=== PATIENT | male | born 1960 | race Caucasian/White ===

== ENCOUNTER 2024-07-12 07:56 | Outpatient (CLI) | payer MEDICARE, SELFPAY ==
--- NOTE | ~2024-07-12 | MR_ITS ---
EXAMINATION: MR cervical spine wo con DATE: 07/12/2024 08:55 INDICATION: Radiculopathy, cervical region. TECHNIQUE: Magnetic resonance imaging (MRI) of the cervical spine was performed without intravenous c ontrast. COMPARISON: None FINDINGS: There is 12 degrees levoscoliosis of cervicothoracic spine. Vertebral body heights are norm al. There is moderately decreased disc height at C3-C4 and severely decreased disc height from C4-C5 through C6-C7. The spinal cord signal intensity is normal. The following disc levels are specifically discussed: C2-C3: There is a central protrusion. There is mild right uncovertebral joint osteoarthritis. There i s severe right and mild left facet joint osteoarthritis. There is mild right neural foraminal stenosi s. There is no central canal stenosis. C3-C4: The disc is bulging. There is severe bilateral uncovertebral joint osteoarthritis. There is mi ld right and severe left facet joint osteoarthritis. There is moderate bilateral neural foraminal derek nosis. There is mild central canal stenosis. C4-C5: The disc is bulging. There is severe bilateral uncovertebral joint osteoarthritis. There is mi ld right and moderate left facet joint osteoarthritis. There is moderate bilateral neural foraminal s tenosis. There is mild central canal stenosis. C5-C6: The disc is bulging. There is severe bilateral uncovertebral joint osteoarthritis. There is mi ld bilateral facet joint osteoarthritis. There is moderate bilateral neural foraminal stenosis. There is mild central canal stenosis. C6-C7: The disc is bulging. There is severe bilateral uncovertebral joint osteoarthritis. There is mo derate bilateral facet joint osteoarthritis. There is severe bilateral neural foraminal stenosis. The re is mild central canal stenosis. C7-T1: The disc does not extend beyond the endplate margin. There is no uncovertebral joint osteoarth ritis. There is severe bilateral facet joint osteoarthritis. There is mild bilateral neural foraminal stenosis. There is no central canal stenosis. IMPRESSION: 1. Severe cervical spondylosis. Reviewed, dictated and finalized at location A.
--- NOTE | ~2024-07-12 | MR_ITS ---
EXAMINATION: MR shoulder LT wo con DATE: 07/12/2024 08:38 INDICATION: Primary osteoarthritis, left shoulder. TECHNIQUE: Magnetic resonance imaging (MRI) of the left shoulder was performed without intravenous co ntrast. Sequences included axial PD-weighted FS FSE, coronal oblique PD-weighted FS FSE and T2-weight ed FS FSE, and sagittal oblique T2-weighted FS FSE and T1-weighted FSE. COMPARISON: None. FINDINGS: Coracoacromial arch: The acromion undersurface is flat in morphology (type I). There is severe acromioclavicular joint ost eoarthritis including inferiorly directed osteophytes. There is mild subacromial/subdeltoid bursitis. Rotator cuff: There is mild supraspinatus and infraspinatus tendinopathy. Teres minor tendon is normal. There is mi ld subscapularis tendinopathy. No tear. There is no asymmetric fatty atrophy of the rotator cuff musc le bellies. Biceps tendon and glenoid labrum: Biceps tendon is in bicipital groove. There is mild biceps tendinopathy. There is degeneration of the glenoid labrum without well-defined tear. Fluid: There is a small glenohumeral joint effusion. Bones/cartilage: There is shallow partial-thickness cartilage loss of glenoid and humeral head. IMPRESSION: 1. Mild rotator cuff tendinopathy. No tear. 2. Mild glenohumeral joint chondrosis. 3. Mild intra-articular biceps tendinopathy. 4. Severe acromioclavicular joint osteoarthritis. 5. Small glenohumeral joint effusion. 6. Mild subacromial/subdeltoid bursitis. Reviewed, dictated and finalized at location A.
== END 2024-07-12 07:57 | disposition home or self-care (01) ==
PROVIDERS: PCP Internal Medicine; Visit Provider Physician Assistant Surgical
DX: M19.012 Primary osteoarthritis, left shoulder (principal); M54.12 Radiculopathy, cervical region; M43.02 Spondylolysis, cervical region; M67.814 Other specified disorders of tendon, left shoulder; M94.212 Chondromalacia, left shoulder; M75.22 Bicipital tendinitis, left shoulder; M25.412 Effusion, left shoulder; M75.52 Bursitis of left shoulder
CPT/HCPCS: 72141; 73221

== ENCOUNTER 2025-02-03 10:06 | Outpatient (CLI) | payer MEDICARE, SELFPAY ==
--- NOTE | 2025-02-03 10:22 | ECG_ITS ---
Test Date: 2025-02-03 10:42:43 Measurements Intervals [place] Rate: 57 P: 69 MO: 213 QRS: -61 QRSD: 154 T: 15 QT: 455 QTc: 444 Interpretive Statements SINUS BRADYCARDIA WITH FIRST DEGREE AV BLOCK INTRAVENTRICULAR CONDUCTION DELAY [130+ ms QRS DURATION] LEFT VENTRICULAR HYPERTROPHY AND ST-T CHANGE [VOLTAGE CRITERIA PLUS ST/T ABNORMALITY] No previous ECG available for comparison Electronically Signed On 02-03-2025 10:55:53 CDT by Richard Frye M.D.
--- OUTSIDE RECORDS SUMMARY | 2025-02-03 10:44 | XMS_ITS | Referral Summary ---
Author Organization [facility] Address [address] [place] [address] Care Team Providers Care Department Clinician Name Role Phone Maxx Clark MD Primary Care Provider + Hernandez Oro MD Unavailable Encounters Date Type Department Care Team Description 01/28/2025 9:20 AM CDT Office Visit [facility]) - [facility] [id number] [facility] Medical Office Building [address] [place] [address] Suki Yu NP Mass of jaw (Primary Dx); Former smoker 01/23/2025 Telephone [facility] Otolaryngology [address] [place] [id number] Susy Wilkinson MS 11/25/2024 10:00 AM CDT Office Visit [facility] Pulmonary at [address] [place] [address] Hernandez Oro MD Chronic obstructive pulmonary disease, unspecified COPD type (HCC) (Primary Dx); Pulmonary nodules; Bronchiectasis without acute exacerbation (HCC); Cigarette nicotine dependence in remission; Nocturnal hypoxemia 11/08/2024 Telephone [facility] Pulmonary at [address] [place] [id number] Portillo Scarlet, DANNY dupixent (Needs top call optum ) from Last 3 Months Allergies Active Allergy Reactions Criticality Noted Date Comments Ceftriaxone Other (See comments) 01/28/2025 tremors Ciprofloxacin Anaphylaxis High 06/05/2018 Medications albuterol HFA (PROVENTIL HFA,VENTOLIN HFA,PROAIR HFA) 90 mcg/actuation inhaler Inhale 2 puffs every 6 (six) hours as needed for wheezing 1 each 11 3 Active sodium chloride 3.5 % solution for nebulization Inhale 1 vial 2 (two) times a day 240 mL 11 4 Active predniSONE (DELTASONE) 10 mg tablet Take 1 tablet (10 mg) by mouth daily Active multivitamin with minerals tablet Take 1 tablet by mouth daily Active ascorbic acid (vitamin C) 1,000 mg tablet Take 1 tablet (1,000 mg total) by mouth daily Active acetylcysteine (NAC) 600 mg capsule Take 1 capsule by mouth daily Active buPROPion SR (ZYBAN) 150 mg 12 hr tablet Take 1 tablet (150 mg total) by mouth 2 (two) times a day Start after 150mg po daily x3 days 60 tablet 11 4 03/07/20 25 Active Additional Information Patient not taking.Reported on 11/25/2024 guaiFENesin ER (MUCINEX) 600 mg 12 hr tablet Take 1 tablet (600 mg total) by mouth 2 (two) times a day 60 tablet 4 Active Additional Information Patient not taking.Reported on 11/25/2024 predniSONE (DELTASONE) 10 mg tabletIndication s:Centrilobular emphysema (HCC) Take 1 tablet (10 mg) by mouth daily 30 tablet 2 4 Active dupilumab (Dupixent Pen) pen injectorIndicati ons:Centrilobula r emphysema (HCC) Inject 2 mL (300 mg total) under the skin every 14 (fourteen) days 4 mL 11 4 Active Additional Information Patient not taking.Reported on 11/25/2024 albuterol 2.5 mg /3 mL (0.083 %) nebulizer solutionIndicati ons:Centrilobula r emphysema (HCC) USE 1 VIAL IN NEBULIZER EVERY 4 HOURS NEEDED FOR WHEEZING 180 mL 11 5 Active budesonide-glyco pyr-formoterol (Breztri Aerosphere) 160-9-4.8 mcg/actuation inhaler Inhale 2 puffs 2 (two) times a day Active penicillin v potassium (VEETID) 500 mg tablet TAKE 1 TABLET BY MOUTH THREE TIMES DAILY FOR 10 DAYS 5 Active Active Problems Problem Noted Date Diagnosed Date Pneumonia of both lungs due to infectious organism, unspecified part of lung 03/12/2024 Long-term use of high-risk medication 03/07/2024 Assessment & Plan (08/27/2024 12:46 PM SURVEY DATA TECHNICIAN): He has been on Prednisone for many years. We have had an extensive discussion about usp steroid use and I have cautioned him on the risks. I would ideally like to wean him to off after starting him on Dupixent For now continue prednisone 10 mg daily Assessment & Plan (03/07/2024 3:41 PM CDT): He has been on Prednisone for many years. We have had an extensive discussion about usp steroid use and I have cautioned him on the risks. I would ideally like to wean him to off. Check vitamin D levels in the interval Current chronic use of systemic steroids 024 Cigarette nicotine dependence without complicati on 01/12/2024 Assessment & Plan (08/27/2024 12:38 PM SURVEY DATA TECHNICIAN): - Smoking cessation counseling and techniques reviewed at length - Avoid triggers and use distraction techniques - He is aware of the [place] Tobacco Quit line: 9-788-LOLJ-YES for free services - 5 minutes spent discussing cessation A previously sent an order for Wellbutrin however he never received this from the pharmacy. He will recheck at the pharmacy and continue to trying to cut down on his own Assessment & Plan (03/07/2024 3:42 PM CDT): - Smoking cessation counseling and techniques reviewed at length - Avoid triggers and use distraction techniques - Information given regarding [place] Tobacco Quit line: 2-905-GJAX-YES for free services - 4 minutes spent discussing cessation He is in agreement to start wellbutrin Assessment & Plan (02/05/2024 6:26 PM CDT): - Smoking cessation counseling and techniques reviewed at length - Avoid triggers and use distraction techniques - Information given regarding [place] Tobacco Quit line: 2-078-OJBU-YES for free services Poor tolerance to varenicline in the past 3 minutes spent discussing cessation Assessment & Plan (01/12/2024 12:54 PM CDT): - Smoking cessation counseling and techniques reviewed at length - Avoid triggers and use distraction techniques - Participate in support groups - Information given regarding [place] Tobacco Quit line: 8-619-WMGV-YES for free services 4 minutes spent discussing cessation Bronchiectasis without acute exacerbation 2023 Assessment & Plan (08/27/2024 12:40 PM SURVEY DATA TECHNICIAN): I have encouraged him to restart vest therapy BID and continue NAC Start doxycycline today Assessment & Plan (03/07/2024 3:40 PM CDT): Continue vest therapy BID, he has good use and benefit NAC Assessment & Plan (02/05/2024 6:20 PM CDT): Continue vest therapy and flutter valve Start NAC PO twice daily to assist with mucous clearance Assessment & Plan (01/12/2024 12:51 PM CDT): Continue vest therapy twice daily Flutter valve use consistently as well We have discussed the pathophysiology of bronchiectasis Continue NAC Chronic respiratory failure with hypoxia, on home O2 therapy 01/12/2024 Assessment & Plan (08/27/2024 12:48 PM SURVEY DATA TECHNICIAN): Continue supplemental oxygen with all sleep We have discussed the risks of hypoxia He declines NIV I previously placed an order for walk testing Assessment & Plan (02/05/2024 6:25 PM CDT): Continue supplemental oxygen with all sleep We have discussed the risks of hypoxia Consider NIV Assessment & Plan (01/12/2024 12:57 PM CDT): Continue supplemental oxygen with all sleep He did not require supplemental oxygen at discharge They will monitor his saturations with activity at home, may require re- evaluation for exertional hypoxia in the future Sepsis with acute hypoxic re spiratory failure without septic shock 12/26/2023 Hospital-acquired bacterial pneumonia 12/23/2023 Asymptomatic microscopic hematuria 12/23/2023 Calcium oxalate crystals in urine 12/23/2023 Pneumonia of right lower lobe due to infectious organism 12/12/2023 COPD exacerbation 08/11/2023 Anaphylaxis 06/06/2018 Assessment & Plan (06/06/2018 6:09 AM CDT): To ciprofloxacin. Status post Solu-Medrol and IM epinephrine. Patient is feeling much better at this time. Symptoms have mostly resolved. Still has some expiratory wheezing on the right. Will continue with breathing treatments. Lactic acidosis 06/06/2018 Assessment & Plan (06/06/2018 6:08 AM CDT): Likely secondary to acute on chronic hypoxic respiratory failure and pneumonia. Level still slightly elevated. Will give patient 1 L bolus and continue with IV fluids. Will continue to monitor. Acute respiratory failure with hypoxia 8 Assessment & Plan (06/06/2018 6:09 AM CDT): Patient normally wears 3 L q.h.s. however has needed oxygen around the clock. Will continue with supplemental oxygen and wean as tolerated. Lipid screening 05/31/2018 Assessment & Plan (11/29/2018 8:50 AM CDT): Due for lab work - orders given as previously ordered Chronic chest wall pain 05/31/2018 Assessment & Plan (11/29/2018 8:52 AM CDT): Discussed option of starting gabapentin. Discussed medication, treatment. He may call or return if he decides to start medication Assessment & Plan (05/31/2018 8:40 AM CDT): Intermittent nerve pain, post biopsy - tender With exam. He is not having daily pain. Reassurance given Muscle spasm 05/31/2018 Assessment & Plan (05/31/2018 8:41 AM CDT): Muscle spasm of lower abd- occurs infrequently. S/s not consistent with abdominal pain, acute abdomen. Reassurance given. Gastroesophageal reflux disease without esophagi tis 05/31/2018 Assessment & Plan (11/29/2018 8:52 AM CDT): Improved with ranitidine. Continue current medication. Assessment & Plan (05/31/2018 8:42 AM CDT): Intermittent, but he is on chronic daily prednisone. Will start zantac 150mg nightly. LAFB (left anterior fascicular block) 12/04/2017 Assessment & Plan (12/04/2017 3:45 PM CDT): Seen on EKG done before pulmonary rehab by centrifugal screen tender. 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 He will continue the prednisone taper back down to 10mg daily. Encouraged him to call pulmonology as instructed by their office if cough continues.He is using his albuterol nebulizer and inhalers as prescribed. Order for cbc Assessment & Plan (06/06/2018 6:08 AM CDT): Patient's centrifugal screen tender is Dr. Borrero. Will continue with prednisone 40 daily. Pulmonary nodules 08/22/2017 Overview (08/24/2017): Added automatically from request for surgery [id number] Assessment & Plan (08/27/2024 12:39 PM SURVEY DATA TECHNICIAN): Hospitalization for pneumonia in February of 2024 with a new ground-glass nodule and consolidations We will get a CT chest this month for follow-up Assessment & Plan (02/05/2024 6:27 PM CDT): Nodule to RUL resolved on imaging 12/[address] due in March 2024, ordered today Assessment & Plan (01/12/2024 12:55 PM CDT): Difficult to assess lower lobes related to mucus plugging and acute infection Repeat CT in 3 months, due 03/2024 Scleratitis 07/10/2017 Migraine without aura and responsive to treatmen t 01/25/2017 Overview (02/10/2017): Migraine without aura, not refractory Pneumonia 12/06/2016 Assessment & Plan (06/06/2018 6:07 AM CDT): Patient had an anaphylactic reaction to Cipro. Patient is currently on Rocephin and azithromycin. Will continue to monitor. Tobacco abuse 12/03/2015 Overview (12/23/2016): Smoker Assessment & Plan (03/01/2017 8:42 AM CDT): He has quit smoking. Chronic obstructive pulmonary disease 12/03/2015 Overview (12/23/2016): Chronic obstructive lung disease Assessment & Plan (08/27/2024 12:38 PM SURVEY DATA TECHNICIAN): Continue Breztri twice daily Albuterol as needed, he is aware of indications for use No clinical benefit from Azithromycin 500mg three times per week. He is intolerant to roflumilast We have discussed pulmonary rehab, I continue to believe this would be beneficial for him. We have also discussed NIV and he declines at this time. He has been steroid dependent for greater than 5 years Eosinophil count up to 600 over the past year We have discussed initiating Dupixent. He and his agree. I have signed the order for this today. Assessment & Plan (03/07/2024 3:39 PM CDT): Continue Breztri twice daily Albuterol as needed, discussed indications for use Continue Azithromycin 500mg three times per week. He is intolerant to roflumilast We have discussed pulmonary rehab, he will consider after the first of the year here at [facility]. We have also discussed NIV and he declines at this time. Re-check six minute walk testing to assess for exertional hypoxia. Assessment & Plan (02/05/2024 6:24 PM CDT): Likely overlap with good bronchodilator response on PFT Continue Breztri twice per day. Albuterol as needed only, discussed indications for use Start roflumilast and azithromycin three times weekly. I have instructed him to start azithromycin first and maintain this for 2 weeks before adding roflumilast Monitor for weight loss and additional SE Last LFT was normal. He has had peripheral eosinophilia even while on chronic prednisone, I would have a low threshold to initiate biologic therapy if he does not have good clinical benefit from additional therapies Assessment & Plan (01/12/2024 12:56 PM CDT): Continue Breztri 2 puffs twice per day Continue albuterol as needed, discussed indications for use He has been hospitalized 3 times in the past 6 months, secondary to bacterial and viral pneumonia Emphysema and COPD are complicated by bronchiectasis and tracheomalacia Consider azithromycin 3 times weekly, he has had difficulty maintaining his weight Daliresp is not an ideal option Order for nebulizer today to be used as needed, he would likely have greater benefit from nebulized medications and may need hypertonic saline in the future Assessment & Plan (08/31/2017 11:51 AM SURVEY DATA TECHNICIAN): Lung sounds are clear today. He is to continue the cipro until finished. Recheck CBC today to monitor white count. F/u with pulmonary as scheduled. He received flu vaccine at hospital discharge. I told him that he should Very careful this winter with influenza and other respiratory illnesses going around. Recommended staying out of public areas as much as possible, good hand washing and wearing a mask when going out. Assessment & Plan (03/01/2017 8:46 AM CDT): COPD is improving with lifestyle modifications and treatment. Following with pulmonology. Allergic reaction Solitary pulmonary nodule Resolved Problems Problem Noted Date Diagnosed Date Resolved Date Healthcare maintenance 12/03/201508/31 Overview (12/23/2016): Screening Assessment & Plan (03/01/2017 8:43 AM CDT): Order for lipid panel given. It was normal in 11/2015. F/u 6 months and as needed. Chronic bronchitis 12/03/2015 7 Overview (12/23/2016): Chronic bronchitis, unspecified chronic bronchitis type Immunizations Immunization Administration Dates Next Due Influenza, Quadrivalent, Kia l Culture-based MDCK, Antibiotic Free, Intramuscular 10/16/2018 Influenza, Quadrivalent, Split, Intramuscular Influenza, Quadrivalent, Spl it, Preservative Free, Intramuscular 08/26/2017 Social History Tobacco Use Types Packs/Day Years Used Date Smoking Tobacco: Former Cigarettes 0.5 51.4 S tarted: 1974 Passive Smoke Exposure: Past Smokeless Tobacco: Never Tobacco Cessation:Counseling Given: Not Answered Comments:Smoking History Packs/day: 1/4 Pack/day Alcohol Use Standard Drinks/Week Comments No 0 (1 standard drink = 0.6 oz pur e alcohol) [facility] [employer] Answer Date Recorded In the past 12 months has [employer] electric, gas, oil, or water [employer] threatened to shut off services in your home? No 03/13/2024 Social Connection and Isolat ion Panel [NHANES] Answer Date Recorded In a typical week, how many times do you talk on the phone with family, friends, or neighbors? More than three times a week 03/13/2024 How often do you get togethe r with friends or relatives? More than three times a week 03/13/2024 How often do you attend chur ch or orthodox services? Never 03/13/2024 Do you belong to any clubs o r organizations such as alevism groups, unions, fraternal or athletic groups, or school groups? No 03/13/2024 How often do you attend meet ings of the clubs or organizations you belong to? Never 03/13/2024 Are you , , di vorced, , never , or living with a partner? 03/13/2024 AUDIT-C Answer Date Recorded Q1: How often do you have a drink containing alc ohol? Never 08/27/2024 Average Number of Drinks Not on file 024 Frequency of Binge Drinking Not on file 08/18 Overall Financial Resource Strain (CARDIA) Answe r Date Recorded How hard is it for you to pa y for the very basics like food, housing, medical care, and heating? Not hard at all 03/13/2024 PHQ-2 Answer Date Recorded PHQ-2 Total Score 0 01/19/2024 Hunger Vital Sign Answer Date Recorded Within the past 12 months, y ou worried that your food would run out before you got the money to buy more. Never true 03/13/20 24 Within the past 12 months, t he food you bought just didn't last and you didn't have money to get more. Never true 03/13/2024 PRAPARE - Transportation Answer Date Re corded In the past 12 months, has l ack of transportation kept you from medical appointments or from getting medications? No 02/17 In the past 12 months, has l ack of transportation kept you from meetings, work, or from getting things needed for daily living? No 03/13/2024 Housing Stability Vital Sign Answer Eugenio e Recorded In the last 12 months, was t here a time when you were not able to pay the mortgage or rent on time? No 01/22/2024 In the last 12 months, how many places have you lived? 1 01/22/2024 In the last 12 months, was t here a time when you did not have a steady place to sleep or slept in a alf (including now)? No 01/22/2024 PHQ-9 Answer Date Recorded PHQ-9 Total Score 0 01/19/2024 Housing Stability Vital Sign Answer Eugenio e Recorded In the last 12 months, was t here a time when you were not able to pay the mortgage or rent on time? No 03/13/2024 In the past 12 months, how m any times have you moved where you were living? 0 03/13/2024 At any time in the past 12 m [place], were you homeless or living in a alf (including now)? No 03/13/2024 Personal Safety Answer Date Recorded Have you ever been in or are you currently in a harmful physical or emotional relationship or is someone making you feel afraid or unsafe? Denies 03/12/2024 Education Answer Date Recorded What is the highest level of school you have completed or the highest degree you have received? High school graduate 12/13/2023 Sex and Gender Information Value Date Recorded Sex Assigned at Not on file Legal Sex Male 1:15 AM SURVEY DATA TECHNICIAN Gender Identity Not on file Sexual Orientation Not on file Last Filed Vital Signs Vital Sign Reading Time Taken Comments Blood Pressure 108/66 11/25/2024 10:03 AM CDT Pulse 63 11/25/2024 10:03 AM CDT Temperature 36.7 C (98 F) 11/25/2024 10:03 AM CDT Respiratory Rate 16 11/25/2024 10:03 AM CDT Oxygen Saturation 97% 11/25/2024 10:03 AM CDT Inhaled Oxygen Concentration - - Weight 76.4 kg (168 lb 6.4 oz) 01/28/2025 9:32 A M CDT Height 177.8 cm (5' 10 ) 01/28/2025 9:32 AM CDT Body Mass Index 24.16 01/28/2025 9:32 AM CDT Plan of Treatment Not on file Procedures Procedure Name Priority Date/Time Associated Diagnosis Comments CTA CHEST ABDOMEN PELVIS ED 09/27/2019 5:52 AM SURVEY DATA TECHNICIAN HEPATITIS C ANTIBODY Routine Gen Lab 07/10/2017 6:03 PM CDT HM COLONOSCOPY Routine 12/21/2015 from Last 3 Months or Most Recently Relevant to Health Maintenance Results * CTA Chest Abdomen Pelvis (09/27/2019 5:52 AM SURVEY DATA TECHNICIAN) Anatomical Region Laterality Modality Body N/A Computed Tomogra phy 09/27/2019 5:25 AM SURVEY DATA TECHNICIAN Narrative 09/27/2019 6:22 AM SURVEY DATA TECHNICIAN PROCEDURE INFORMATION: Exam: CT Angiography Chest Without And With Contrast Exam date and time: 09/27/2019 5:25 AM Age: 58 years old Clinical indication: Right-sided chest pain; TECHNIQUE: Imaging protocol: Computed tomographic angiography of the chest without and with intravenous contrast. 3D rendering: MIP and/or 3D reconstructed images were created by the technologist. Contrast material: OPTI 350; Contrast volume: 115 ml; Contrast route: LEFT ARM; COMPARISON: CT CHEST WO CONTRAST 01/15/2019 7:35 AM FINDINGS: Pulmonary arteries: No pulmonary emboli. Aorta: 4.0 cm ascending thoracic aortic aneurysm. Lungs: Centrilobular emphysema with eary bullous changes. Scattered bronchiectasis. Linear fibrosis vs atelectasis lingula and right middle lobe. Pleural space: No pneumothorax. No pleural effusion. Heart: No cardiomegaly. No pericardial effusion. Lymph nodes: Unremarkable. No enlarged lymph nodes. Bones/joints: Chronic degenerative spinal changes without acute fracture or dislocation. Soft tissues: Unremarkable. IMPRESSION: 4 cm ascending thoracic aortic aneurysm. No dissection. No pulmonary emboli. Emphysema. PROCEDURE INFORMATION: Exam: CT Angiography Abdomen and Pelvis With Contrast Exam date and time: 09/27/2019 5:25 AM Age: 58 years old Clinical indication: Right-sided chest pain; Other: Chest and back; Patient HX: Pmhx of copd who presents to ED for chest pain. Patient states that he has been experiencing right shoulder pain that has progressed to right sided back and chest pain since 2 days prior. Notes that radiation from shoulder began this morning. details that patient has had cough for the past few weeks and has been taking around 3 different antibiotics over the past 6-8 weeks. Current smoker. Opti 350 115ml via 20 g left forearm. ; Additional info: Thoracic aortic aneurysm suspected, initial exam TECHNIQUE: Imaging protocol: Computed tomographic angiography of the abdomen and pelvis with intravenous contrast material. 3D rendering: MIP and/or 3D reconstructed images were created by the technologist. Contrast material: OPTI 350; Contrast volume: 115 ml; Contrast route: LEFT ARM; COMPARISON: CT CHEST WO CONTRAST 01/15/2019 7:35 AM FINDINGS: Aorta: 3.0 cm upper abdominal aortic aneurysm. Celiac trunk and mesenteric arteries: No occlusion or significant stenosis. Renal arteries: No occlusion or significant stenosis. Right iliac arteries: No occlusion or significant stenosis. Left iliac arteries: No occlusion or significant stenosis. Liver: No mass. Gallbladder and bile ducts: Unremarkable. No calcified stones. No ductal dilation. Pancreas: Unremarkable. No mass. No ductal dilation. Spleen: Unremarkable. No splenomegaly. Adrenals: Unremarkable. No mass. Kidneys and ureters: Unremarkable. No solid mass. No hydronephrosis. Stomach and bowel: There is moderate colonic fecal retention. No mechanical obstruction. Appendix: No evidence of appendicitis. Intraperitoneal space: Unremarkable. No free air. No significant fluid collection. Lymph nodes: Unremarkable. No enlarged lymph nodes. Bladder: Unremarkable. No mass. Reproductive: Unremarkable as visualized. Bones/joints: Chronic degenerative spinal changes without acute fracture or dislocation. Soft tissues: Unremarkable. IMPRESSION: 3 cm abdominal aortic aneurysm. No dissection. Fecal retention. No mechanical obstruction. THIS DOCUMENT HAS BEEN ELECTRONICALLY SIGNED BY MENG FERRIS MD Procedure Note Meng Ferris MD - 09/27/2019 PROCEDURE INFORMATION: Exam: CT Angiography Chest Without And With Contrast Exam date and time: 09/27/2019 5:25 AM Age: 58 years old Clinical indication: Right-sided chest pain; TECHNIQUE: Imaging protocol: Computed tomographic angiography of the chest withoutand with intravenous contrast. 3D rendering: MIP and/or 3D reconstructed images were created by the technologist. Contrast material: OPTI 350; Contrast volume: 115 ml; Contrast route: LEFTARM; COMPARISON: CT CHEST WO CONTRAST 01/15/2019 7:35 AM FINDINGS: Pulmonary arteries: No pulmonary emboli. Aorta: 4.0 cm ascending thoracic aortic aneurysm. Lungs: Centrilobular emphysema with eary bullous changes. Scattered bronchiectasis. Linear fibrosis vs atelectasis lingula and right middlelobe. Pleural space: No pneumothorax. No pleural effusion. Heart: No cardiomegaly. No pericardial effusion. Lymph nodes: Unremarkable. No enlarged lymph nodes. Bones/joints: Chronic degenerative spinal changes without acute fractureor dislocation. Soft tissues: Unremarkable. IMPRESSION: 4 cm ascending thoracic aortic aneurysm. No dissection. No pulmonary emboli. Emphysema. PROCEDURE INFORMATION: Exam: CT Angiography Abdomen and Pelvis With Contrast Exam date and time: 09/27/2019 5:25 AM Age: 58 years old Clinical indication: Right-sided chest pain; Other: Chest and back;Patient HX: Pmhx of copd who presents to ED for chest pain. Patient states that he hasbeen experiencing right shoulder pain that has progressed to right sided backand chest pain since 2 days prior. Notes that radiation from shoulder beganthis morning. details that patient has had cough for the past few weeksand has been taking around 3 different antibiotics over the past 6-8 weeks.Current smoker. Opti 350 115ml via 20 g left forearm. ; Additional info:Thoracic aortic aneurysm suspected, initial exam TECHNIQUE: Imaging protocol: Computed tomographic angiography of the abdomen andpelvis with intravenous contrast material. 3D rendering: MIP and/or 3D reconstructed images were created by the technologist. Contrast material: OPTI 350; Contrast volume: 115 ml; Contrast route: LEFTARM; COMPARISON: CT CHEST WO CONTRAST 01/15/2019 7:35 AM FINDINGS: Aorta: 3.0 cm upper abdominal aortic aneurysm. Celiac trunk and mesenteric arteries: No occlusion or significantstenosis. Renal arteries: No occlusion or significant stenosis. Right iliac arteries: No occlusion or significant stenosis. Left iliac arteries: No occlusion or significant stenosis. Liver: No mass. Gallbladder and bile ducts: Unremarkable. No calcified stones. No ductal dilation. Pancreas: Unremarkable. No mass. No ductal dilation. Spleen: Unremarkable. No splenomegaly. Adrenals: Unremarkable. No mass. Kidneys and ureters: Unremarkable. No solid mass. No hydronephrosis. Stomach and bowel: There is moderate colonic fecal retention. Nomechanical obstruction. Appendix: No evidence of appendicitis. Intraperitoneal space: Unremarkable. No free air. No significant fluid collection. Lymph nodes: Unremarkable. No enlarged lymph nodes. Bladder: Unremarkable. No mass. Reproductive: Unremarkable as visualized. Bones/joints: Chronic degenerative spinal changes without acute fractureor dislocation. Soft tissues: Unremarkable. IMPRESSION: 3 cm abdominal aortic aneurysm. No dissection. Fecal retention. No mechanical obstruction. THIS DOCUMENT HAS BEEN ELECTRONICALLY SIGNED BY MENG FERRIS MD Bruce Bassett MD IMG CT PROCEDURES Final Resu lt * Hepatitis C antibody (07/10/2017 6:03 PM CDT) Hep C Ab Nonreactive Nonreactive IRAIS VERGARA Comment: Interpretive Data Positive and greyzone results should be confirmed by a molecular method. If positive or greyzone, a second separately collected sample should be submitted for Hepatitis C Virus RNA. Detection and Quantitation by Real-Time Reverse Director Building-PCR.Current Interpretive data was last revised on 2017. Blood specimen (specimen) 07/10/2017 6:03 PM CDT 07/10/2017 6:21 PM CDT Yeni Archuleta MD LAB MICROBIOLOG Y - GENERAL ORDERABLES Final Result IRAIS [facility] Department [place] [address] * COLONOSCOPY (12/21/2015) HM Colonoscopy Unknown us Historical Provider HEALTH MAINTENANCE Final Result from Last 3 Months or Most Recently Relevant to Health Maintenance Insurance [facility] REF [facility] MEDICARE ADVANTAGE [facility] MEDIC[facility] ADV[facility] Advance Directives For more information, please contact: [phone] * Full Code (Latest Code Status on File) Date Activated Date Inactivated Comments 03/12/2024 8:36 AM 03/14/2024 2:28 PM * Full Code Date Activated Date Inactivated Comments 01/20/2024 12:48 AM 01/22/2024 7:41 PM * Full Code Date Activated Date Inactivated Comments 12/23/2023 5:41 AM 12/26/2023 4:27 PM * Full Code Date Activated Date Inactivated Comments 12/12/2023 3:42 PM 12/15/2023 4:06 PM * Full Code Date Activated Date Inactivated Comments 08/11/2023 10:20 AM 08/16/2023 5:11 PM Healthcare Agents on File Name Relationship Healthcare Agent Relationship Communication Jocelin More Spouse Health Care Agent Care Teams Department Clinician Relationship Specialty Start Date End Date Maxx Clark MD PCP - General 09/14/19 Hernandez Oro MD [address] [place] [address] [address] CHOW [address] [place] [id number] Consulting Physician Pulmonary Disease 12/26/23
--- OUTSIDE RECORDS SUMMARY | 2025-02-03 10:44 | XMS_ITS | Clinical Summary ---
Author Organization [facility] Address [address] [place] [id number] Care Team Providers Care Lance Crewmember/Mlrs Sergeant Name Role Phone Maxx Clark MD Primary Care Provider + Hernandez Oro MD Unavailable Allergies Active Allergy Reactions Criticality Noted Date Comments Ceftriaxone Other (See comments) 01/28/2025 tremors Ciprofloxacin Anaphylaxis High 06/05/2018 Medications albuterol HFA (PROVENTIL HFA,VENTOLIN HFA,PROAIR HFA) 90 mcg/actuation inhaler Inhale 2 puffs every 6 (six) hours as needed for wheezing 1 each 3 Active sodium chloride 3.5 % solution for nebulization Inhale 1 vial 2 (two) times a day 240 mL 4 Active predniSONE (DELTASONE) 10 mg tablet [...] 03/07/2024 Assessment & Plan (08/27/2024 12:46 PM PEDIATRIC MEDICAL ASSISTANT): He has been on Prednisone for many years. We have had an extensive discussion about fpc steroid use and I have cautioned him on the risks. I would ideally like to wean him to off after starting him on Dupixent For now continue prednisone 10 mg daily Assessment & Plan (03/07/2024 3:41 PM CDT): He has been on Prednisone for many years. 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 I would ideally like to wean him to off. Check vitamin D levels in the interval Current chronic use of systemic steroids 024 Cigarette nicotine dependence without complicati on 01/12/2024 Assessment & Plan (08/27/2024 12:38 PM PEDIATRIC MEDICAL ASSISTANT): - Smoking cessation counseling and techniques reviewed at length - Avoid triggers and use distraction techniques - He is aware of the [place] Tobacco Quit line: 1-503-GIJZ-YES for free services - 5 minutes spent [...] use distraction techniques - Information given regarding [place] Tobacco Quit line: 1-707-LNIU-YES for free services - 4 minutes spent discussing cessation He is in agreement to start wellbutrin Assessment & Plan (02/05/2024 6:26 PM CDT): - Smoking cessation counseling and techniques reviewed at length - Avoid triggers and use distraction techniques - Information given regarding [place] Tobacco Quit line: 6-228-ULFH-YES for free services Poor tolerance to varenicline in the past 3 minutes spent discussing cessation Assessment & Plan (01/12/2024 12:54 PM CDT): - Smoking cessation counseling and techniques reviewed at length - Avoid triggers and use distraction techniques - Participate in support groups - Information given regarding [place] Tobacco Quit line: 3-595-JLJD-YES for free services 4 minutes spent discussing cessation Bronchiectasis without acute exacerbation 2023 Assessment & Plan (08/27/2024 12:40 PM PEDIATRIC MEDICAL ASSISTANT): I have encouraged him to restart vest [...] 01/12/2024 Assessment & Plan (08/27/2024 12:48 PM PEDIATRIC MEDICAL ASSISTANT): Continue supplemental oxygen with all sleep We [...] on EKG done before pulmonary rehab by gas operations analyst. Will refer to cardiology for clearance for [...] & Plan (06/06/2018 6:08 AM CDT): Patient's gas operations analyst is Dr. Borrero. Will continue with prednisone 40 daily. Pulmonary nodules 08/22/2017 Overview (08/24/2017): Added automatically from request for surgery [id number] Assessment & Plan (08/27/2024 12:39 PM PEDIATRIC MEDICAL ASSISTANT): Hospitalization for pneumonia in February of 2024 [...] disease Assessment & Plan (08/27/2024 12:38 PM PEDIATRIC MEDICAL ASSISTANT): Continue Breztri twice daily Albuterol as needed, [...] the [facility] the [facility]. We have also discussed NIV and [...] future Assessment & Plan (08/31/2017 11:51 AM PEDIATRIC MEDICAL ASSISTANT): Lung sounds are clear today. He is [...] months and as needed. Chronic bronchitis 12/03/2015 Overview (12/23/2016): Chronic bronchitis, unspecified chronic bronchitis type Encounters Date Type Department Care Team Description 01/28/2025 9:20 AM CDT Office Visit [facility]) [facility] ENT [address] [facility] [address] [place] [address] Suki Yu NP Mass of jaw (Primary Dx); Former smoker 01/23/2025 Telephone [facility] Otolaryngology [address] [place] [address] Susy Wilkinson 11/25/2024 10:00 AM CDT Office Visit [facility] Pulmonary at [address] [place] [address] Hernandez Oro MD Chronic obstructive pulmonary disease, unspecified COPD type (HCC) (Primary Dx); Pulmonary nodules; Bronchiectasis without acute exacerbation (HCC); Cigarette nicotine dependence in remission; Nocturnal hypoxemia 11/08/2024 Telephone [facility] Pulmonary at [address] [place] [address] Scarlet Nath LPN dupixent (Needs top call optum ) from Last 3 Months Immunizations Immunization Administration Dates Next Due Influenza, Quadrivalent, Kia l Culture-based MDCK, Antibiotic Free, Intramuscular 10/16/2018 Influenza, Quadrivalent, Split, Intramuscular Influenza, Quadrivalent, Spl it, Preservative Free, Intramuscular 08/26/2017 Surgical History Surgery Date Site/Laterality Comments FRACTURE SURGERY Medical History Medical History Date Comments Hx Other Medical 1981 Collar Bone; La terality: left Hx Other Medical Knee surgery; L aterality: right Chronic obstructive pulmonar y disease (HCC) COPD Cigarette nicotine dependenc e without complication 01/12/2024 Family History Medical History Relation Name Comments Cancer Father Prostate cancer Father Cancer, pros regalado; Stroke Father Stroke; Relation Name Status Comments Father Social History Tobacco Use Types Packs/Day Years Used Date Smoking Tobacco: Former Cigarettes 0.5 51.4 S tarted: 1974 Passive Smoke Exposure: Past Smokeless Tobacco: Never Tobacco Cessation:Counseling Given: Not Answered Comments:Smoking History Packs/day: 1/4 Pack/day Alcohol Use Standard Drinks/Week Comments No 0 (1 standard drink = 0.6 oz pur e alcohol) [facility] Utilities Answer Date Recorded In the past 12 months has [employer], [employer], or water [employer] threatened to shut off services in your [...] 03/13/2024 How often do you attend chur or shinto services? Never 03/13/2024 Do you belong to any clubs o r organizations such as orthodoxy groups, unions, fraternal or athletic groups, or [...] place to sleep or slept in a skilled nursing (including now)? No 01/22/2024 PHQ-9 Answer Date [...] any time in the past 12 m [facility], were you homeless or living in a skilled nursing (including now)? No 03/13/2024 Personal Safety Answer [...] on file Legal Sex Male 1:15 AM PEDIATRIC MEDICAL ASSISTANT Gender Identity Not on file Sexual Orientation Not on file Obstetrics History Last Filed Vital Signs Vital Sign Reading [...] 01/28/2025 9:32 AM CDT Plan of Treatment Health Maintenance Due Date Last Done Comments Prostate Cancer Screening-PSA 1958 DTaP/Tdap/Td Vaccine (1 - Tdap) 1969 Hepatitis B Screening 1976 Zoster Vaccine (1 of 2) 2008 Pneumococcal vaccine 65+ (2 of 2 - PPSV23) 04/27/2016 03/02/2016 Colon Cancer Screening-Colonoscopy 12/20/2020 12/21/2015 Abdominal Aortic Aneurysm (A AA) Screen 2023 09/27/2019 Well Visit 65+ 2023 Depression Screening 01/18/2025 01/19/2024, 01/19/2024, 08/11/2023, Additional history exists Fall Risk Assessment 03/13/2025 03/13/2024 Influenza Vaccine (Season Ended) 2025 05/26/2020, 07/11/2019, 10/16/2018, Additional history exists Colon Cancer Screening-CT Colonography Discontinued 12/21/2015 Colon Cancer Screening-DNA Stool Discontinued 12/21/19 16 Colon Cancer Screening-FIT Discontinued 12/21/2015 Colon Cancer Screening-Sigmoidoscopy Discontinued 12/21/2015 Hepatitis C Screening Completed 07/10/2017, 017 Procedures Procedure Name Priority Date/Time Associated Diagnosis Comments CTA CHEST ABDOMEN PELVIS ED 09/27/2019 5:52 AM PEDIATRIC MEDICAL ASSISTANT HEPATITIS C ANTIBODY Routine Gen Lab 07/10/2017 6:03 PM CDT HM COLONOSCOPY Routine 12/21/2015 from Last 3 Months or Most Recently Relevant to Health Maintenance Results * CTA Chest Abdomen Pelvis (09/27/2019 5:52 AM PEDIATRIC MEDICAL ASSISTANT) Anatomical Region Laterality Modality Body N/A Computed Tomogra phy 09/27/2019 5:25 AM PEDIATRIC MEDICAL ASSISTANT Narrative 09/27/2019 6:22 AM PEDIATRIC MEDICAL ASSISTANT PROCEDURE INFORMATION: Exam: CT Angiography Chest Without [...] Hepatitis C antibody (07/10/2017 6:03 PM CDT) Pathologist [facility] Hep C Ab Nonreactive Nonreactive IRAIS VERGARA Comment: Interpretive Data Positive and greyzone results should be confirmed by a molecular method. If positive or greyzone, a second separately collected sample should be submitted for Hepatitis C Virus RNA. Detection and Quantitation by Real-Time Reverse Med Surg Rn-PCR.Current Interpretive data was last revised on 2017. Blood specimen (specimen) 07/10/2017 6:03 PM CDT 07/10/2017 6:21 PM CDT Yeni Archuleta MD LAB MICROBIOLOG Y - GENERAL ORDERABLES Final Result IRAIS VERGARA [facility] Department [place] [address] * COLONOSCOPY (12/21/2015) Colonoscopy Unknown Osmani Provider HEALTH MAINTENANCE Final Result from Last 3 Months or Most Recently Relevant to Health Maintenance Insurance [facility] HMO REF [facility] MEDICARE ADVANTAGE Member Subscriber Plan / Payer (Ef fective 2024-Present) Name:Destineeclaricemarce Ramin Lilia Relation to Subscriber:Self Name:Ramin More Payer ID:[id number] (NAIC) Type:[employer] MEDICARE Address: [place] [id number] [employer] MEDICARE ADVANTAGE Advance Directives For more information, please contact: [phone] * Full Code (Latest Code Status on [...] Name Relationship Healthcare Agent Relationship Communication Jocelin Argenis Spouse Health Care Agent Care Teams Lance Crewmember/Mlrs Sergeant Relationship Specialty Start Date End Date Maxx Clark MD PCP - General 09/14/19 Hernandez Oro MD [address] [place] [address] DR CHOW [address] [place] [id number] Consulting Physician Pulmonary Disease 12/26/23"
--- OUTSIDE RECORDS SUMMARY | 2025-02-03 10:44 | XMS_ITS | Encounter Summary ---
Author Organization [facility] Address [address] [place] [address] Phone Care Team Providers Care Front End Loader Driver Name Role Phone Maxx Clark MD Primary Care Provider [phone] Navjot Ram MD Unavailable [phone] Reason for Referral * Consult, Test & Initiate Treatment (Less Than 2 Weeks) - Authorized Specialty Diagnoses / Procedures Referred By Joaquina hernandez Referred To Contact Otolaryngology Diagnoses Mass of jaw Maxx Clark MD [address] [place] [address] Phone: tel: fax: EXTERNAL LOCATION [place]IDE OF [place] Referral ID Status Reason Start Date Expiration Date V isits Requested Visits Authorized [id number] Authorized 01/23/2025 1 1 Scheduling Instructions Ramin is being referred to Shen Swann, Hector Yu APRN or other specialist in patient's insurance network for abscess to chin. See below for Ramin's current medications, allergies and problem list. CURRENT MEDS: Current Outpatient Medications: albuterol (PROVENTIL, VENTOLIN) (2.5 MG/3ML) 0.083% Nebulizer Soln, take 2.5 mg by inhalation. (Patient not taking: Reported on 01/15/2025), Disp: , Rfl: Breztri Aerosphere 160-9-4.8 MCG/ACT Aerosol, take 2 Puffs by inhalation., Disp: , Rfl: COMBIVENT RESPIMAT 20-100 MCG/ACT Aerosol Solution, 1 Puff every 4 hours as needed. (Patient not taking: Reported on 05/14/2024), Disp: , Rfl: OXYGEN CONCENTRATOR, 3 L by Does not apply route nightly. Use as directed, Disp: , Rfl: penicillin v potassium 500 MG Tablet, Take 1 Tablet by mouth 3 times daily for 10 days., Disp: 30 Tablet, Rfl: 0 predniSONE (DELTASONE) 5 MG Tablet, Take 5 mg by mouth daily., Disp: , Rfl: SYMBICORT 160-4.5 MCG/ACT Aerosol, 2 Puffs every 12 hours. (Patient not taking: Reported on 01/15/2025), Disp: , Rfl: 11 No current facility-administered medications for this visit. ALLERGIES: -- Ciprofloxacin -- Anaphylaxis PROBLEM LIST: Patient Active Problem List: Chronic obstructive pulmonary disease (HCC) Gastroesophageal reflux disease without esophagitis Solitary pulmonary nodule HCAP (healthcare-associated pneumonia) Tobacco dependence syndrome COPD exacerbation (HCC) Acute respiratory failure with hypoxia (HCC) Severe sepsis with acute organ dysfunction (HCC) Hypokalemia Multifocal pneumonia Reason for Visit * Reason Onset Date Comments Referral 01/23/2025 Encounter Details Date Type Department Care Team (Late st Contact Info) Description 01/23/2025 Telephone [facility] [address] [place] [phone] Maxx Clark MD [address] [place] [address] Referral Social History Tobacco Use Types Packs/Day Years Used Date Smoking Tobacco: Former Cigarettes 0.5 50.7 S tarted: 05/22/1974 Smokeless Tobacco: Never Alcohol Use Standard Drinks/Week Comments Not Currently 0 (1 standard drink = 0.6 oz pur e alcohol) rare [facility] Utilities Answer Date Recorded In the past 12 months has e [employer], gas, oil, or water [employer] threatened to shut off services in your home? No 05/14/2024 Social Connection and Isolation Panel [NHANES] A nswer Date Recorded Frequency of Communication with Friends and Fami ly Not on file 05/14/2024 Frequency of Social Gatherings with Friends and Family Not on file 05/14/2024 Attends Mu-Ism Services Not on file 05/14 Do you belong to any clubs o r organizations such as alevism groups, unions, fraternal or athletic groups, or school groups? Patient declined 05/14/2024 How often do you attend meet ings of the clubs or organizations you belong to? Never 05/14/2024 Are you , , di vorced, , never , or living with a partner? 05/14/2024 AUDIT-C Answer Date Recorded Q1: How often do you have a drink containing alc ohol? Monthly or less 05/14/2024 Q2: How many drinks containi ng alcohol do you have on a typical day when you are drinking? 1 or 2 05/14/2024 Q3: How often do you have si x or more drinks on one occasion? Never 05/14/2024 Overall Financial Resource Strain (CARDIA) Answe r Date Recorded How hard is it for you to pa y for the very basics like food, housing, medical care, and heating? Not hard at all 05/14/2024 [facility] - Occupational Stress Questionnaire Answer Date Recorded Do you feel stress - tense, restless, nervous, or anxious, or unable to sleep at night because your mind is troubled all the time - these days? Not at all 05/14/2024 Exercise Vital Sign Answer Date Recorde d On average, how many days pe r week do you engage in moderate to strenuous exercise (like a brisk walk)? 3 days Minutes of Exercise per Session Not on file 05/14/2024 Hunger Vital Sign Answer Date Recorded Within the past 12 months, y ou worried that your food would run out before you got the money to buy more. Never true 05/14/20 24 Within the past 12 months, t he food you bought just didn't last and you didn't have money to get more. Never true 05/14/2024 PRAPARE - Transportation Answer Date Re corded In the past 12 months, has l ack of transportation kept you from medical appointments or from getting medications? No 04/19 In the past 12 months, has l ack of transportation kept you from meetings, work, or from getting things needed for daily living? No 05/14/2024 Housing Stability Vital Sign Answer Eugenio e Recorded In the last 12 months, was t here a time when you were not able to pay the mortgage or rent on time? No 05/14/2024 Number of Times Moved in the Last Year Not on fi le 05/14/2024 At any time in the past 12 m onths, were you homeless or living in a senior living (including now)? No 05/14/2024 Education Answer Date Recorded What is the highest level of school you have completed or the highest degree you have received? 12th grade 08/09/2022 Sexually Active Control Partners Comments Yes Female Sex and Gender Information Value Date Recorded Sex Assigned at Not on file Legal Sex Male 7:29 PM CDT Gender Identity Not on file Sexual Orientation Not on file Occupation Industry Job Start Date Job End Date Retired Not on file Not on file Not on file documented as of this encounter Miscellaneous Notes * Telephone Encounter - Maxx Clark MD - 01/23/2025 10:48 AM CDT ENT referral approved. * Telephone Encounter - Barby Carlos RN - 01/23/2025 10:37 AM CDT Situation: Patient's is requesting a referral to (speciality) ENT Background: Referral requested for Abscess Action: Name and location of patient's preferred specialty provider: Hector Subramanian APRN Patient been seen by this speciality in the past? No Recommendation: Referral request routed to provider for review. Caller has been given the referral center information (M-F 8am-4:30pm [phone] option 7) to call to check status of referral once the order has been signed. Patient has an appointment on 01/28/25 at 09:20 a.m. 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
--- OUTSIDE RECORDS SUMMARY | 2025-02-03 10:44 | XMS_ITS | Encounter Summary ---
Author Organization [facility] Address [address] [place] [address] Phone Care Team Providers Care Rotary Kiln Operator Name Role Phone Emma Lew NP Primary Care Provider [phone] Maxx Clark MD Primary Care Provider + Hernandez Oro MD Unavailable Encounter Details Date Type Department Care Team (Late st Contact Info) Description 11/29/2017 Orders Only [facility] ProviderOsmani MD [facility] [place] [address] Social History Tobacco Use Types Packs/Day Years Used Date Smoking Tobacco: Light Smoker Cigarettes 0.3 40 Smokeless Tobacco: Never Comments:Smoking History Pac ks/day: 0.5 Packs Alcohol Use Standard Drinks/Week Comments No 0 (1 standard drink = 0.6 oz pur e alcohol) Sex and Gender Information Value Date Recorded Sex Assigned at Not on file Legal Sex Male 1:15 AM PROCESS CONTROL BOARD OPERATOR Gender Identity Not on file Sexual Orientation Not on file documented as of this encounter Plan of Treatment Not on file documented as of this encounter Procedures Procedure Name Priority Date/Time Associated Diagnosis Comments DISCHARGE LABORATORY CUMULATIVE REPORT 11/29/2017 12:00 AM CDT documented in this encounter Results * DISCHARGE LABORATORY CUMULATIVE REPORT (11/29/2017 12:00 AM CDT) Narrative 11/29/2017 12:00 AM CDT Ordered by an unspecified provider. us Historical Provider LAB BLOOD ORDERABLES [place] Result documented in this encounter Visit Diagnoses Not on filedocumented in this encounter Additional Health Concerns Infection Onset Date Last Indicated Resolved Time Exposure, COVID-19 Comment:Added automatically based on COVID19 lab answers indicating exposure risk 09/26/2021 09/26/2021 09/26/2021 10:33 AM PROCESS CONTROL BOARD OPERATOR COVID: Suspected 09/26/2021 09/26/2021 09/26/2021 10:33 AM PROCESS CONTROL BOARD OPERATOR COVID19 09/26/2021 09/26/2021 10/06/2021 3:05 AM PROCESS CONTROL BOARD OPERATOR COVID: Recovered Comment:Added based on recent COVID infection. 10/06/2021 10/21/2021 02/03/2022 3:05 AM C DT COVID: Suspected 08/11/2023 08/11/2023 08/11/2023 9:29 AM PROCESS CONTROL BOARD OPERATOR COVID: Suspected 12/22/2023 12/22/2023 12/22/2023 11:44 PM CDT Rhino/Enterovirus 12/23/2023 12/23/2023 12/30/2023 3:05 AM CDT COVID: Suspected 01/19/2024 01/19/2024 01/19/2024 3:38 PM CDT COVID: Suspected 03/13/2024 03/13/2024 03/13/2024 7:54 PM CDT documented as of this encounter Care Teams Rotary Kiln Operator Relationship Specialty Start Date End Date Emma Lew NP PCP - General 05/05/17 09/13/19 Maxx Clark MD PCP - General 09/14/19 Hernandez Oro MD 4 [facility] [address] [place] [address] Consulting Physician Pulmonary Disease 12/26/23 documented as of this encounter
--- OUTSIDE RECORDS SUMMARY | 2025-02-03 10:44 | XMS_ITS | Clinical Summary ---
Author Organization [facility] Address [address] [place] [address] Phone Care Team Providers Care Print Press Operator Name Role Phone Maxx Clark MD Primary Care Provider [phone] Navjot Ram MD Unavailable [phone] Allergies Active Allergy Reactions Criticality Noted Date Comments Ciprofloxacin Anaphylaxis High 05/16/2019 Medications SYMBICORT 160-4.5 MCG/ACT Aerosol 2 Puffs every 12 hours. 11 9 Active COMBIVENT RESPIMAT 20-100 MCG/ACT Aerosol Solution 1 Puff every 4 hours as needed. 9 Active albuterol (PROVENTIL, VENTOLIN) (2.5 MG/3ML) 0.083% Nebulizer Soln take 2.5 mg by inhalation. 7 Active OXYGEN CONCENTRATOR 3 L by Does not apply route nightly. Use as directed Active predniSONE (DELTASONE) 5 MG Tablet Take 5 mg by mouth daily. Active Breztri Aerosphere 160-9-4.8 MCG/ACT Aerosol take 2 Puffs by inhalation. Active penicillin v potassium 500 MG Tablet Take 1 Tablet by mouth 3 times daily for 10 days. 30 Tablet 5 01/26/20 25 Active Problems Problem Noted Date Diagnosed Date Multifocal pneumonia 12/29/2022 Hypokalemia 12/27/2022 HCAP (healthcare-associated pneumonia) 3 Tobacco dependence syndrome 10/25/2022 COPD exacerbation 10/25/2022 Acute respiratory failure with hypoxia 3 Severe sepsis with acute organ dysfunction 10/25 Solitary pulmonary nodule 05/22/2019 Gastroesophageal reflux disease without esophagi tis 05/31/2018 Overview (05/22/2019): Last Assessment & Plan: Improved with ranitidine. Continue current medication. Chronic obstructive pulmonary disease 12/03/2015 Overview (05/22/2019): Chronic obstructive lung disease Last Assessment & Plan: Lung sounds are clear today. He is [...] and wearing a mask when going out. Resolved Problems Problem Noted Date Diagnosed Date Resolved Date Acute on chronic respiratory failure with hypoxia 06/06/2018 05/22/2019 Overview (05/22/2019): Last Assessment & Plan: Patient normally wears 3 L q.h.s. however has needed oxygen around the clock. Will continue with supplemental oxygen and wean as tolerated. Encounters Date Type Department Care Team Description 01/23/2025 [facility] [address] [place] [phone] Maxx Clark MD Referral 01/15/2025 12:05 PM CDT [facility] [address] [place] [address] Nupur Gibbons APRN, MIDDLE SCHOOL HISTORY TEACHER Abscess (Primary Dx) Discharge Disposition: Discharged to home or Selfcare 01/15/2025 Travel 01/15/[address] [facility] Call Center [address] [place] [phone] Maxx Clark MD Advice Only; Lump; Ear Pain from Last 3 Months Immunizations Immunization Administration Dates Next Due Influenza Vaccine greater than 3 yrs 08/26/2017 Influenza Vaccine, Quadrivalent, PF 05/26/2020,1 ,08/26/2017 Influenza, Injectable, Mdck,quadrivalent,with Preservative 10/16/2018 Influenza, Injectable, Quadrivalent 09/29/2016 Pneumococcal Vaccine - 13 Valent 03/02/2016 Family History Medical History Relation Name Comments Stroke Brother 1 No Known Problems Brother 2 No Known Problems Brother 3 No Known Problems Brother 4 No Known Problems Brother 5 No Known Problems Father No Known Problems Mother No Known Problems Sister 1 No Known Problems Sister 2 Relation Name Status Comments Brother 1 Alive Brother 2 Alive Brother 3 Alive Brother 4 Alive Brother 5 Alive Father Mother Alive Sister 1 Alive Sister 2 Alive Social History Tobacco Use Types Packs/Day Years Used Date Smoking Tobacco: Former Cigarettes 0.5 50.7 S tarted: 05/22/1974 Smokeless Tobacco: Never Tobacco Cessation:Counseling Given: Not Answered Alcohol Use Standard Drinks/Week Comments Not Currently 0 (1 standard drink = 0.6 oz pur e alcohol) rare [facility] Utilities Answer Date Recorded In the past 12 months has [employer], gas, oil, or water [employer] threatened to shut off services in your home? No 05/14/2024 Social Connection and Isolation Panel [NHANES] A nswer Date Recorded Frequency of Communication with Friends and Fami ly Not on file 05/14/2024 Frequency of Social Gatherings with Friends and Family Not on file 05/14/2024 Attends Yazdanism Services Not on file 05/14 Do you belong to any clubs o r organizations such as druze groups, unions, fraternal or athletic groups, or [...] and heating? Not hard at all 05/14/2024 [facility] [place] of Occupat ional Health - Occupational Stress [...] any time in the past 12 m [facility], were you homeless or living in a [facility] (including now)? No 05/14/2024 Education Answer Date [...] file Not on file Not on file Last Filed Vital Signs Vital Sign Reading Time Taken Comments Blood Pressure 104/56 01/15/2025 12:10 PM CDT Pulse 72 01/15/2025 12:10 PM CDT Temperature 36.4 C (97.6 F) 01/15/2025 12:10 PM CDT Respiratory Rate 16 01/15/2025 12:10 PM CDT Oxygen Saturation 96% 01/15/2025 12:10 PM CDT Inhaled Oxygen Concentration - - Weight 73.9 kg (163 lb) 05/14/2024 4:41 PM CDT Height 177.8 cm (5' 10 ) 05/14/2024 4:41 PM CDT Body Mass Index 23.39 05/14/2024 4:41 PM CDT Plan of Treatment Health Maintenance Due Date Last Done Comments Hepatitis C Virus (HCV) Screening 1960 TdaP Immunization 1960 Cologuard 2008 Immunochemical Fecal Occult Blood 2008 Zoster Immunization (1 of 2) 2008 Pneumococcal Immunization (50+ years) (2 of 2 - PPSV23) 04/27/2016 03/02/2016 Respiratory Syncytial Virus (RSV) Immunization (Adult) (1 - Risk 60-74 years 1-dose series) 2018 SARS-COV-2 Immunization ( - season) 2024 Influenza Immunization (Season Ended) 2025 05/26/2020, 07/11/2019, 10/16/2018, Additional history exists Colonoscopy 12/20/2025 12/21/2015, 01/18/2010 Colorectal Cancer Screening 12/20/2025 12/21/2015, 01/18/2010 AAA Screening Ultrasound Completed 01/23/2013 Pneumococcal Immunization Combined Discontinued 03/02/2016 PSA Discussion Completed 06/29/2022 Lung Cancer Screening Discontinued 09/20/2024 , 03/12/2024, 03/12/2024, Additional history exists Hepatitis B Immunization Aged Out No longer eligible based on patient's age to complete this topic Human Papillomavirus (HPV) Immunization Aged Out No longer eligible based on patient's age to complete this topic Meningococcal Immunization (ACWY) Aged Out No longer eligible based on patient's age to complete this topic Rotavirus Immunization Aged Out No lo nger eligible based on patient's age to complete this topic Procedures Procedure Name Priority Date/Time Associated Diagnosis Comments CT CHEST W/O CONTRAST STAT 12/26/2022 9:25 PM CDT HM COLONOSCOPY Routine 12/21/2015 CT ABDOMEN W/ CONTRAST Routine 01/23/2013 from Last 3 Months or Most Recently Relevant to Health Maintenance Results * CT CHEST W/O CONTRAST (12/26/2022 9:25 PM CDT) Anatomical Region Laterality Modality Chest N/A Computed Tomogra phy 12/26/2022 9:59 PM CDT Impressions 12/26/2022 10:02 PM CDT IMPRESSION: Changes of moderate centrilobular and paraseptal emphysema. Redemonstrated is diffuse bronchiectasis and worsening mucous plugging with new consolidative airspace opacities predominantly in the lingula and lower lobes, right greater than left. These findings are most compatible with acute on chronic aspiration pneumonia. No definite pulmonary nodule as described on prior examination. Unchanged, aneurysmal dilatation of the ascending thoracic aorta measuring 4.1 cm. Narrative 12/26/2022 10:02 PM CDT EXAM DESCRIPTION: CT CHEST W/O CONTRAST REASON FOR STUDY: Respiratory illness, TECHNIQUE: CT scan of the chest performed without intravenous contrast using helical scanning technique. Reconstructed coronal and sagittal MPR images reviewed. All images stored on PACS. Automated exposure control was used as a dose optimization technique for this examination. COMPARISON: None REFERENCE: Per ACR white paper recommendations, unless otherwise specified no follow-up imaging is recommended for incidental renal and adrenal lesions per consensus recommendations based on imaging criteria. Further lab evaluation could be pursued based on clinical findings. FINDINGS: The sensitivity for detection of solid visceral lesions is diminished without the use of intravenous contrast. LUNGS: Changes of moderate centrilobular and paraseptal emphysema. Redemonstrated is diffuse bronchiectasis and worsening mucous plugging with consolidative airspace opacities predominantly in the lingula and lower lobes, right greater than left. Persistent mucous plugging in the right upper lobe with interval decreased focal opacity in the right upper lobe (image 58) seen on prior examination. No definite pulmonary nodule as described on prior examination. Recommend close attention on subsequent follow-up examination. No pulmonary edema. PLEURA: No effusion. No pneumothorax. MEDIASTINUM/JANIS: No identified masses or abnormal nodes. HEART: Heart size is normal with no pericardial effusion. CORONARY ARTERY CALCIFICATION: No significant VASCULATURE: Unchanged mm aneurysmal ascending thoracic aorta measuring 4.1 cm. AXILLA: No adenopathy. CHEST WALL: No masses. No subcutaneous air. HARDWARE/LINES/TUBES: None. UPPER ABDOMEN: No significant abnormality. MUSCULOSKELETAL: No significant abnormality. OTHER: No other significant abnormality. THIS IS AN ELECTRONICALLY VERIFIED FINAL REPORT 12/26/2022 9:59 PM - Electronically signed by Galdino Rogers M.D. BB: GALA Report ID: [id number] Reading Location: [place] [address] Procedure Note Galdino Rogers MD - 12/26/2022 EXAM DESCRIPTION: CT CHEST W/O CONTRAST REASON FOR STUDY: Respiratory illness, TECHNIQUE: CT scan of the chest performed without intravenous contrast using helical scanning technique. Reconstructed coronal and sagittal MPR images reviewed. All images stored on PACS. Automated exposure control was used as a dose optimization technique for this examination. COMPARISON: None REFERENCE: Per ACR white paper recommendations, unless otherwise specified no follow-up imaging is recommended for incidental renal and adrenal lesions per consensus recommendations based on imaging criteria. Further lab evaluation could be pursued based on clinical findings. FINDINGS: The sensitivity for detection of solid visceral lesions is diminished without the use of intravenous contrast. LUNGS: Changes of moderate centrilobular and paraseptal emphysema. Redemonstrated is diffuse bronchiectasis and worsening mucous plugging with consolidative airspace opacities predominantly in the lingula and lower lobes, right greater than left. Persistent mucous plugging in the right upper lobe with interval decreased focal opacity in the right upper lobe (image 58) seen on prior examination. No definite pulmonary nodule as described on prior examination. Recommend close attention on subsequent follow-up examination. No pulmonary edema. PLEURA: No effusion. No pneumothorax. MEDIASTINUM/JANIS: No identified masses or abnormal nodes. HEART: Heart size is normal with no pericardial effusion. CORONARY ARTERY CALCIFICATION: No significant VASCULATURE: Unchanged mm aneurysmal ascending thoracic aorta measuring 4.1 cm. AXILLA: No adenopathy. CHEST WALL: No masses. No subcutaneous air. HARDWARE/LINES/TUBES: None. UPPER ABDOMEN: No significant abnormality. MUSCULOSKELETAL: No significant abnormality. OTHER: No other significant abnormality. THIS IS AN ELECTRONICALLY VERIFIED FINAL REPORT 12/26/2022 9:59 PM - Electronically signed by Galdino Rogers M.D. BB: GALA Report ID: [id number] Reading Location: [place] [address] IMPRESSION: Changes of moderate centrilobular and paraseptal emphysema. Redemonstrated is diffuse bronchiectasis and worsening mucous plugging with new consolidative airspace opacities predominantly in the lingula and lower lobes, right greater than left. These findings are most compatible with acute on chronic aspiration pneumonia. No definite pulmonary nodule as described on prior examination. Unchanged, aneurysmal dilatation of the ascending thoracic aorta measuring 4.1 cm. us Rosendo Sidhu MD IMG CT ORDERABLES [place] Result * COLONOSCOPY (12/21/2015) us Kurt Harris MD PROCEDURE/MINOR SURGICAL OR DERABLES Final Result * CT ABDOMEN W/ CONTRAST (01/23/2013) Anatomical Region Laterality Modality Abdomen N/A Other us Not On File Provider IMG CT ORDERABLES Final Res ult from Last 3 Months or Most Recently Relevant to Health Maintenance Insurance MEDICARE C [employer] [address] Advance Directives * Full Code (Latest Code Status on File) Date Activated Date Inactivated Comments 12/26/2022 11:25 PM 12/29/2022 2:40 PM CPR-Full Tr eatment: FULL ARREST: Attempt Resuscitation/CPR wit intubation and mechanical ventilation. PRE-ARREST: Use entire range of life support measures to stabilize the patient. * Full Code Date Activated Date Inactivated Comments 10/27/2022 9:19 AM 10/28/2022 3:47 PM CPR-Full Roberta tment: FULL ARREST: Attempt Resuscitation/CPR wit intubation and mechanical ventilation. PRE-ARREST: Use entire range of life support measures to stabilize the patient. Care Teams Print Press Operator Relationship Specialty Start Date End Date Maxx Clark MD [address] [place] [address] PCP - General Internal Medicine 05/22/19 [place] [address] [address] Consulting Physician Pulmonary Disease 06/29/22
== END 2025-02-03 10:07 | disposition home or self-care (01) ==
LOC: ANHSURGERY 10:11
PROVIDERS: PCP Internal Medicine; Visit Provider Orthopaedic Surgery
DX: R94.31 Abnormal electrocardiogram [ECG] [EKG] (principal); Z87.891 Personal history of nicotine dependence
CPT/HCPCS: 93005

== ENCOUNTER 2025-02-07 00:13 | Day surgery (SDC) | payer MEDICARE, SELFPAY ==
--- NOTE | 2025-01-23 15:05 | PC.NURSE ---
Report to the Outpatient Waiting Room, entrance under the green pavilion located off [facility], at time __10 AM on date _02/07/25 . Planned Procedure Time: __1200 NOON .? Time changes happen often and if your time is changed the preop area will call you the afternoon before. - You and your visitor will be asked to self-screen and do not enter if you have any COVID symptoms. Please call surgeon if you need to reschedule. - A mask is optional within the hospital at this time. Patients may have clear liquids (water, carbonated beverages, clear teas, apple juice) until 3 hours prior to surgery ( 9AM) with a maximum of 20 ounces. - No food from midnight until time of surgery and no smoking, or chewing tobacco (or any form of nicotine). No chewing gum, candy or mints. Take only the following medications with a SIP of water on the morning of surgery: __BREZTRI INHALER,PREDNISONE DO NOT STOP ANY OF YOUR OTHER PRESCRIPTION MEDICATIONS PRIOR TO SURGERY EXCEPT THE FOLLOWING Hold all vitamins and supplements for 3 days per anesthesiologist. Medications to discontinue per physician NONE Please no make-up, nail romansh, hairspray, perfume, deodorant, or body powder the day of surgery.? No jewelry (including any body piercings) or valuables the day of surgery, leave them at home.? Please take a shower or bath the night before, or the morning of, surgery with an antibacterial soap.? Wear comfortable, loose fitting clothing.? Children are encouraged to wear pajamas. - Jewelry must be removed prior to entering the operating room.? Rings and piercings that are not removed may be cut off. - The hospital will not accept responsibility for valuables.? - Please leave all valuables, including medications, at home the day of surgery. If you are going home after surgery, a licensed shuttle truck driver must drive you home.? - NO public transportation without another adult if you receive anesthesia. - We recommend that an adult stay with you for 24 hours following discharge. - We also recommend that you do not drive, make important decision, drink alcoholic beverages, or take any drugs that were not prescribed by your health care provider for at least 24 hours after your discharge time. For Pediatric surgeries, we recommend two adults accompany the child home. Follow any additional instructions given to you from your surgeon. Telephone instructions given to __WIFE JOCELIN and asked if any additional questions and then verbalized understanding. Patient advised to call surgeon office or pre surgery nurse liaison [phone] if any additional questions.
[2025-01-23 15:14] VITALS: BMI 22.2
[2025-02-07] VITALS (11 sets, daily range): BP systolic 103–119; BP diastolic 53–70; PULSE 58–65; RESP 12–18; TEMP 36.3–36.5; O2SAT 90–100
--- OUTSIDE RECORDS SUMMARY | 2025-02-07 00:17 | XMS_ITS | Encounter Summary ---
Author Organization [facility] Address [address] [place] [address] Phone Care Team Providers Care Financial Operations Consultant Name Role Phone Maxx Clark MD Primary Care Provider [phone] Navjot Ram MD Unavailable [phone] Reason for Referral * Consult, Test & Initiate Treatment (Less Than 2 Weeks) - Authorized Specialty Diagnoses / Procedures Referred By Joaquina hernandez Referred To Contact Otolaryngology Diagnoses Mass of jaw Maxx Clark MD [address] [place] [address] Phone: tel: fax: EXTERNAL LOCATION OUTSIDE OF [place] Referral ID Status Reason Start Date Expiration Date V isits Requested Visits Authorized [id number] Authorized 01/23/2025 1 1 Scheduling Instructions Ramin [...] 01/23/2025 Telephone [facility] Central Call Center [address] [place] [phone] Maxx Clark MD [address] [place] [address] Referral Social History Tobacco Use Types Packs/Day Years Used Date Smoking Tobacco: Former Cigarettes 0.5 50.7 S tarted: 05/22/1974 Smokeless Tobacco: Never Alcohol Use Standard Drinks/Week Comments Not Currently 0 (1 standard drink = 0.6 oz pur e alcohol) rare [facility] Utilities Answer Date Recorded In the past 12 months has e [employer], gas, oil, or water [employer] threatened to shut off services in your home? No 05/14/2024 Social Connection and Isolation Panel [NHANES] A nswer Date Recorded Frequency of Communication with Friends and Fami ly Not on file 05/14/2024 Frequency of Social Gatherings with Friends and Family Not on file 05/14/2024 Attends Sabianism Services Not on file 05/14 Do you belong to any clubs o r organizations such as congregation groups, unions, fraternal or athletic groups, or [...] and heating? Not hard at all 05/14/2024 [facility] of Occupat ional Health - Occupational Stress [...] you homeless or living in a senior care (including now)? No 05/14/2024 Education Answer Date [...] given the referral center information (M-F 8am-4:30pm [phone] option 7) to call to check status [...] Total Score: 0 10/01/19 20 10:00 AM STEAM SHOVEL OPERATOR documented as of this encounter Care Teams Financial Operations Consultant Relationship Specialty Start Date End Date Maxx Clark MD [address] [place] [address] PCP - General Internal Medicine 05/22/19 [place] [id number] [facility] [address] [place] [address] Consulting Physician Pulmonary Disease 06/29/22 documented as of this encounter
--- OUTSIDE RECORDS SUMMARY | 2025-02-07 00:17 | XMS_ITS | Encounter Summary ---
Author Organization [facility] Address [address] [place] [address] Phone Care Team Providers Care Junior Buyer Name Role Phone Emma Lew NP Primary Care Provider [phone] Maxx Clark MD Primary Care Provider + Hernandez Oro MD Unavailable Encounter Details Date Type Department Care Team (Late st Contact Info) Description 11/29/2017 [facility] Only [facility]i [facility] [place] [address] Social History Tobacco Use Types Packs/Day Years Used Date Smoking Tobacco: Light Smoker Cigarettes 0.3 40 Smokeless Tobacco: Never Comments:Smoking History Pac ks/day: 0.5 Packs Alcohol Use Standard Drinks/Week Comments No 0 (1 standard drink = 0.6 oz pur e alcohol) Sex and Gender Information Value Date Recorded Sex Assigned at Not on file Legal Sex Male 1:15 AM BLIND LACER Gender Identity Not on file Sexual Orientation [...] exposure risk 09/26/2021 09/26/2021 09/26/2021 10:33 AM BLIND LACER COVID: Suspected 09/26/2021 09/26/2021 09/26/2021 10:33 AM BLIND LACER COVID19 09/26/2021 09/26/2021 10/06/2021 3:05 AM BLIND LACER COVID: Recovered Comment:Added based on recent COVID infection. 10/06/2021 10/21/2021 02/03/2022 3:05 AM C DT COVID: Suspected 08/11/2023 08/11/2023 08/11/2023 9:29 AM BLIND LACER COVID: Suspected 12/22/2023 12/22/2023 12/22/2023 11:44 PM CDT Rhino/Enterovirus 12/23/2023 12/23/2023 12/30/2023 3:05 AM CDT COVID: Suspected 01/19/2024 01/19/2024 01/19/2024 3:38 PM CDT COVID: Suspected 03/13/2024 03/13/2024 03/13/2024 7:54 PM CDT documented as of this encounter Care Teams Junior Buyer Relationship Specialty Start Date End Date Emma Lew NP PCP - General 05/05/17 09/13/19 Maxx Clark MD PCP - General 09/14/19 Hernandez Oro MD [address] [place] [address] Consulting Physician Pulmonary Disease 12/26/23 documented as of this encounter
--- OUTSIDE RECORDS SUMMARY | 2025-02-07 00:17 | XMS_ITS | Clinical Summary ---
Author Organization [facility] Address [address] [place] [address] Phone Care Team Providers Care Clinical Rehabilitation Specialist Name Role Phone Maxx Clark MD Primary Care Provider [phone] Navjot Ram MD Unavailable [phone] Allergies Active Allergy Reactions Criticality Noted Date [...] Type Department Care Team Description 01/23/2025 [facility] [address] [place] [phone] Maxx Clark MD Referral 01/15/2025 12:05 PM CDT [facility] [address] [place] [address] Nupur Gibbons APRN, MACHINIST JOB SETTER Abscess (Primary Dx) Discharge Disposition: Discharged to home or Selfcare 01/15/2025 Travel 01/15/2025 Nurse Triage [facility] Central Call Center [address] [place] [phone] Maxx Clark MD Advice Only; Lump; Ear [...] = 0.6 oz pur e alcohol) rare [facility] Utilities Answer Date Recorded In the past 12 months has [employer], gas, oil, or water [email or web address] threatened to shut off services in your home? No 05/14/2024 Social Connection and Isolation Panel [NHANES] A nswer Date Recorded Frequency of Communication with Friends and Fami ly Not on file 05/14/2024 Frequency of Social Gatherings with Friends and Family Not on file 05/14/2024 Attends Church Services Not on file 05/14 Do you belong to any clubs o r organizations such as buddhism groups, unions, fraternal or athletic groups, or [...] and heating? Not hard at all 05/14/2024 [facility] [place] of Occupat ional Health - Occupational Stress [...] any time in the past 12 m [facility], were you homeless or living in a retirement (including now)? No 05/14/2024 Education Answer Date [...] Galdino Rogers M.D. BB: GALA Report ID: [id number] Reading Location: [place] [address] Procedure Note Galdino Rogers MD - 12/26/2022 [...] Galdino Rogers M.D. BB: GALA Report ID: [id number] Reading Location: [place] [address] IMPRESSION: Changes of moderate centrilobular and paraseptal [...] Relevant to Health Maintenance Insurance MEDICARE C [employer] [facility] Advance Directives * Full Code (Latest Code [...] measures to stabilize the patient. Care Teams Clinical Rehabilitation Specialist Relationship Specialty Start Date End Date Maxx Clark MD [address] [place] [address] PCP - General Internal Medicine 05/22/19 [place] [address] [address] Consulting Physician Pulmonary Disease 06/29/22
--- OUTSIDE RECORDS SUMMARY | 2025-02-07 00:17 | XMS_ITS | Referral Summary ---
Author Organization [facility] Address [address] [place] [address] Care Team Providers Care Winding Rack Operator Name Role Phone Maxx Clark MD Primary Care Provider + Hernandez Oro MD Unavailable Encounters Date Type Department Care Team Description 02/04/2025 1:02 PM CDT - 02/04/2025 11:59 PM CDT Hospital Encounter [address] [address] Mass of jaw Discharge Disposition: Discharge to home or self care 02/03/2025 Telephone [facility] [address] [place] [address] Julia Whalen 01/28/2025 9:20 AM CDT Office Visit [facility]) - [facility] ENT [address] [facility] Office Building [address] [place] [address] Suki Yu NP Mass of jaw (Primary Dx); Former smoker 01/23/[address] [facility] Otolaryngology [address] [place] [address] Susy Wilkinson MS 11/25/2024 10:00 AM CDT Office Visit [facility] Pulmonary at [address] [place] [address] Hernandez Oro MD Chronic obstructive pulmonary disease, unspecified COPD type (HCC) (Primary Dx); Pulmonary nodules; Bronchiectasis without acute exacerbation (HCC); Cigarette nicotine dependence in remission; Nocturnal hypoxemia from Last 3 Months Allergies Active Allergy [...] 03/07/2024 Assessment & Plan (08/27/2024 12:46 PM FINISHER MACHINE): He has been on Prednisone for many years. We have had an extensive discussion about fdc steroid use and I have cautioned him on the risks. I would ideally like to wean him to off after starting him on Dupixent For now continue prednisone 10 mg daily Assessment & Plan (03/07/2024 3:41 PM CDT): He has been on Prednisone for many years. We have had an extensive discussion about rat exterminator steroid use and I have cautioned him on the risks. I would ideally like to wean him to off. Check vitamin D levels in the interval Current chronic use of systemic steroids 024 Cigarette nicotine dependence without complicati on 01/12/2024 Assessment & Plan (08/27/2024 12:38 PM FINISHER MACHINE): - Smoking cessation counseling and techniques reviewed at length - Avoid triggers and use distraction techniques - He is aware of the [place] Tobacco Quit line: 8-193-MGUH-YES for free services - 5 minutes spent [...] Information given regarding [place] Tobacco Quit line: 6-416-MIZO-YES for free services - 4 minutes spent discussing cessation He is in agreement to start wellbutrin Assessment & Plan (02/05/2024 6:26 PM CDT): - Smoking cessation counseling and techniques reviewed at length - Avoid triggers and use distraction techniques - Information given regarding [place] Tobacco Quit line: 3-086-YZET-YES for free services Poor tolerance to varenicline in the past 3 minutes spent discussing cessation Assessment & Plan (01/12/2024 12:54 PM CDT): - Smoking cessation counseling and techniques reviewed at length - Avoid triggers and use distraction techniques - Participate in support groups - Information given regarding [place] Tobacco Quit line: 7-678-ZQPU-YES for free services 4 minutes spent discussing cessation Bronchiectasis without acute exacerbation 2023 Assessment & Plan (08/27/2024 12:40 PM FINISHER MACHINE): I have encouraged him to restart vest [...] 01/12/2024 Assessment & Plan (08/27/2024 12:48 PM FINISHER MACHINE): Continue supplemental oxygen with all sleep We [...] on EKG done before pulmonary rehab by manager programs. Will refer to cardiology for clearance for [...] & Plan (06/06/2018 6:08 AM CDT): Patient's manager programs is Dr. Borrero. Will continue with prednisone 40 daily. Pulmonary nodules 08/22/2017 Overview (08/24/2017): Added automatically from request for surgery [id number] Assessment & Plan (08/27/2024 12:39 PM FINISHER MACHINE): Hospitalization for pneumonia in February of 2024 [...] disease Assessment & Plan (08/27/2024 12:38 PM FINISHER MACHINE): Continue Breztri twice daily Albuterol as needed, [...] the first of the year here at [facility]. We have also discussed NIV and [...] future Assessment & Plan (08/31/2017 11:51 AM FINISHER MACHINE): Lung sounds are clear today. He is [...] drink = 0.6 oz pur e alcohol) [facility] Utilities Answer Date Recorded In the past 12 months has [employer], gas, oil, or water [employer] threatened to shut off services in your [...] often do you attend chur ch or caodaism services? Never 03/13/2024 Do you belong to any clubs o r organizations such as cheondoism groups, unions, fraternal or athletic groups, or [...] place to sleep or slept in a custodial (including now)? No 01/22/2024 PHQ-9 Answer Date [...] time in the past 12 m [facility], were you homeless or living in a custodial (including now)? No 03/13/2024 Personal Safety Answer [...] on file Legal Sex Male 1:15 AM FINISHER MACHINE Gender Identity Not on file Sexual Orientation [...] Name Priority Date/Time Associated Diagnosis Comments CT SOFT TISSUE NECK W CONTRAST Schedule Routine, Read Routine (OP Routine) 02/04/2025 1:55 PM CDT Mass of jaw CTA CHEST ABDOMEN PELVIS ED 09/27/2019 5:52 AM FINISHER MACHINE HEPATITIS C ANTIBODY Routine Gen Lab 07/10/2017 6:03 PM CDT HM COLONOSCOPY Routine 12/21/2015 from Last 3 Months or Most Recently Relevant to Health Maintenance Results * CT Soft Tissue Neck with Contrast (02/04/2025 1:55 PM CDT) Anatomical Region Laterality Modality Head and Neck N/A Computed Tomogra phy 02/04/2025 2:43 PM CDT Narrative 02/04/2025 3:16 PM CDT EXAM DESCRIPTION: CT SOFT TISSUE NECK W CONTRAST REASON FOR STUDY: Neck mass, nonpulsatile, Mass of right jaw Jaw mass about a month ago that was the size of a golf ball that has now gone down to about the size of a marble Was on penicillin for the past couple of weeks Patient is scheduled for left shoulder surgery this Monday and needs results on results to make sure it has resolved so he can proceed with surgery BB marker on area TECHNIQUE: Post IV contrast scanning from skull base through lung apices. Reconstructed MPR images reviewed. All images stored on PACS. Automated exposure control was used as a dose optimization technique for this examination. CONTRAST TYPE/DOSE: 75mL of IOVERSOL 350 MG IODINE/ML INTRAVENOUS SYRINGE injected via intravenous COMPARISON: None available FINDINGS: SOFT TISSUE: Subjacent to the right neck skin marker, abutting the deep cortex of the mandibular body (image 41 of series 2) there is an oblong area of gas measuring 10 x 5 mm. This is possibly centered within a lymph node, given that a normal lymph node is present at this location on the contralateral side. There is surrounding fat stranding ORAL CAVITY/FLOOR OF MOUTH, PHARYNX, LARYNX, HYPOPHARYNX: Streak artifact from dental amalgam obscures portions of the tongue and oral cavity the vocal folds are apposed, limiting evaluation at this level. There is a gas-filled outpouching measuring 14 x 10 mm at the right aspect of the nasopharynx on image 21 of 2, which appears to communicate with the airway. No adjacent fat stranding. At the level of the palatine tonsils there is bilateral fullness of the soft tissues (image 27 of series 2). This could represent apposition of the mucosal surfaces, but direct visualization is recommended to exclude a lesion. LYMPHADENOPATHY: Asymmetrically prominent right level 2A lymph node on image 34 of series 4. MAJOR SALIVARY GLANDS: No solid or cystic masses. No inflammatory changes. THYROID: Normal size. No nodules greater than 1 cm. VASCULATURE: There is bilateral carotid athero sclerotic plaque. There is mild stenosis of the left common carotid artery secondary to noncalcified plaque focally INTRACRANIAL/SKULL BASE/INCLUDED ORBITS: No gross acute finding. PARANASAL SINUSES: Flhs-[id number] bilateral maxillary sinus mucosal thickening. Moderate ethmoid sinus mucosal thickening.. Mastoids appear grossly unremarkable. CERVICAL SPINE: Multilevel facet and uncovertebral osteoarthritis. Multilevel moderate degenerative disc disease. No acute fracture or suspicious bone lesion is seen in the visualized skeleton. There is mild C7 on T1 anterolisthesis. LUNG APICES: Severe pulmonary emphysema seen at the lung apices OTHER: There are periapical lucencies about multiple teeth IMPRESSION: 10 x 5 mm oblong area of gas in the soft tissues abutting the deep cortex of the right mandibular body, subjacent to the skin marker. This may be centered within a lymph node. This is suspicious for a small abscess or abscessed lymph node. Asymmetrically prominent right level 2A lymph node may be reactive. Attention on follow-up. 14 x 10 mm gas-filled outpouching/diverticulum at the right aspect of the nasopharynx. Recommend direct visualization to exclude an a downstream obstructing lesion. Bilateral fullness of the palatine tonsils. This could represent crowding of the mucosal surfaces. Direct visualization is recommended to exclude a lesion Otolaryngology consultation and short interval follow-up CT are recommended. THIS IS AN ELECTRONICALLY VERIFIED FINAL REPORT 02/04/2025 3:16 PM - Electronically signed by Tyshawn Siegel M.D. MZ: EMANUEL Report ID: [id number] Reading Location: [id number] Procedure Note Tyshawn Siegel MD - 02/04/2025 EXAM DESCRIPTION: CT SOFT TISSUE NECK W CONTRAST REASON FOR STUDY: Neck mass, nonpulsatile, Mass of right jaw Jaw mass about a month ago that was the size of a golf ball that has nowgone down to about the size of a marble Was on penicillin for the past coupleof weeks Patient is scheduled for left shoulder surgery this Monday andneeds results on results to make sure it has resolved so he can proceed withsurgery BB marker on area TECHNIQUE: Post IV contrast scanning from skull base through lung apices. Reconstructed MPR images reviewed. All images stored on PACS. Automated exposure control was used as a dose optimization technique for this examination. CONTRAST TYPE/DOSE: 75mL of IOVERSOL 350 MG IODINE/ML INTRAVENOUSSYRINGE injected via intravenous COMPARISON: None available FINDINGS: SOFT TISSUE: Subjacent to the right neck skin marker, abutting the deep cortex of the mandibular body (image 41 of series 2) there is an oblongarea of gas measuring 10 x 5 mm. This is possibly centered within a lymphnode, given that a normal lymph node is present at this location on the contralateral side. There is surrounding fat stranding ORAL CAVITY/FLOOR OF MOUTH, PHARYNX, LARYNX, HYPOPHARYNX: Streakartifact from dental amalgam obscures portions of the tongue and oral cavity thevocal folds are apposed, limiting evaluation at this level. There is agas-filled outpouching measuring 14 x 10 mm at the right aspect of the nasopharynx on image 21 of 2, which appears to communicate with the airway. No adjacentfat stranding. At the level of the palatine tonsils there is bilateralfullness of the soft tissues (image 27 of series 2). This could representapposition of the mucosal surfaces, but direct visualization is recommended toexclude a lesion. LYMPHADENOPATHY: Asymmetrically prominent right level 2A lymph node onimage 34 of series 4. MAJOR SALIVARY GLANDS: No solid or cystic masses. No inflammatorychanges. THYROID: Normal size. No nodules greater than 1 cm. VASCULATURE: There is bilateral carotid athero sclerotic plaque. Thereis mild stenosis of the left common carotid artery secondary to noncalcified plaque focally INTRACRANIAL/SKULL BASE/INCLUDED ORBITS: No gross acute finding. PARANASAL SINUSES: Mbuy-or-bolyqvrr bilateral maxillary sinus mucosal thickening. Moderate ethmoid sinus mucosal thickening.. Mastoids appear grossly unremarkable. CERVICAL SPINE: Multilevel facet and uncovertebral osteoarthritis. Multilevel moderate degenerative disc disease. No acute fracture or suspicious bone lesion is seen in the visualized skeleton. There is mildC7 on T1 anterolisthesis. LUNG APICES: Severe pulmonary emphysema seen at the lung apices OTHER: There are periapical lucencies about multiple teeth IMPRESSION: 10 x 5 mm oblong area of gas in the soft tissues abutting the deep cortexof the right mandibular body, subjacent to the skin marker. This may becentered within a lymph node. This is suspicious for a small abscess or abscessed lymph node. Asymmetrically prominent right level 2A lymph node may be reactive. Attention on follow-up. 14 x 10 mm gas-filled outpouching/diverticulum at the right aspect of the nasopharynx. Recommend direct visualization to exclude an a downstream obstructing lesion. Bilateral fullness of the palatine tonsils. This could represent crowdingof the mucosal surfaces. Direct visualization is recommended to exclude alesion Otolaryngology consultation and short interval follow-up CT arerecommended. THIS IS AN ELECTRONICALLY VERIFIED FINAL REPORT 02/04/2025 3:16 PM - Electronically signed by Tyshawn Siegel M.D. MZ: MZ Report ID: [id number] Reading Location: [place] [address] [place] Suki Yu POSTMASTER IMG CT PROCEDURES [place] l Result * CTA Chest Abdomen Pelvis (09/27/2019 5:52 AM FINISHER MACHINE) Anatomical Region Laterality Modality Body N/A Computed Tomogra phy 09/27/2019 5:25 AM FINISHER MACHINE Narrative 09/27/2019 6:22 AM FINISHER MACHINE PROCEDURE INFORMATION: Exam: CT Angiography Chest Without [...] C antibody (07/10/2017 6:03 PM CDT) Pathologist [facility] Hep C Ab Nonreactive Nonreactive [facility] Comment: Interpretive Data Positive and greyzone results should be confirmed by a molecular method. If positive or greyzone, a second separately collected sample should be submitted for Hepatitis C Virus RNA. Detection and Quantitation by Real-Time Reverse Rodding Machine Tender-PCR.Current Interpretive data was last revised on 2017. Blood specimen (specimen) 07/10/2017 6:03 PM CDT 07/10/2017 6:21 PM CDT Yeni Archuleta MD LAB MICROBIOLOG Y - GENERAL ORDERABLES Final Result [facility] [place] [address] * COLONOSCOPY (12/21/2015) Colonoscopy Unknown Osmani Provider HEALTH MAINTENANCE Final Result from Last 3 Months or Most Recently Relevant to Health Maintenance Insurance [facility] HMO/PPO Address: [address] [address] [place] [address] [facility] HMO/PPO Address: [address] [address] [place] [address] [facility] HMO REF [facility] MEDICARE Address: [address] [address] [place] [address] [employer] MEDICARE ADVANTAGE [facility] MEDICARE Address: [address] [address] [place] [address] [facility] MEDICARE ADVANTAGE [facility] MEDICARE Address: [address] [address] [place] [address] Advance Directives For more information, please contact: [phone] * Full Code (Latest Code Status on [...] More Spouse Health Care Agent Care Teams Winding Rack Operator Relationship Specialty Start Date End Date Maxx lCark MD PCP - General 09/14/19 Hernandez Oro MD [address] [place] [id number] Consulting Physician Pulmonary Disease 12/26/23
--- OUTSIDE RECORDS SUMMARY | 2025-02-07 00:18 | XMS_ITS | Clinical Summary ---
Author Organization [facility] Address [address] [place] [address] Care Team Providers Care Marketing And Development Coordinator Name Role Phone Maxx Clark MD Primary [...] 03/07/2024 Assessment & Plan (08/27/2024 12:46 PM BOARDING MOTHER): He has been on Prednisone for many years. We have had an extensive discussion about snf steroid use and I have cautioned him on the risks. I would ideally like to wean him to off after starting him on Dupixent For now continue prednisone 10 mg daily Assessment & Plan (03/07/2024 3:41 PM CDT): He has been on Prednisone for many years. We have had an extensive discussion about termite treater helper steroid use and I have cautioned him on the risks. I would ideally like to wean him to off. Check vitamin D levels in the interval Current chronic use of systemic steroids 024 Cigarette nicotine dependence without complicati on 01/12/2024 Assessment & Plan (08/27/2024 12:38 PM BOARDING MOTHER): - Smoking cessation counseling and techniques reviewed at length - Avoid triggers and use distraction techniques - He is aware of the [place] Tobacco Quit line: 3-735-JHDM-YES for free services - 5 minutes spent [...] use distraction techniques - Information given regarding [place] Tobacco Quit line: 6-911-JMAH-YES for free services - 4 minutes spent discussing cessation He is in agreement to start wellbutrin Assessment & Plan (02/05/2024 6:26 PM CDT): - Smoking cessation counseling and techniques reviewed at length - Avoid triggers and use distraction techniques - Information given regarding [place] Tobacco Quit line: 9-352-TIMS-YES for free services Poor tolerance to varenicline in the past 3 minutes spent discussing cessation Assessment & Plan (01/12/2024 12:54 PM CDT): - Smoking cessation counseling and techniques reviewed at length - Avoid triggers and use distraction techniques - Participate in support groups - Information given regarding [place] Tobacco Quit line: 0-805-HZVX-YES for free services 4 minutes spent discussing cessation Bronchiectasis without acute exacerbation 2023 Assessment & Plan (08/27/2024 12:40 PM BOARDING MOTHER): I have encouraged him to restart vest [...] 01/12/2024 Assessment & Plan (08/27/2024 12:48 PM BOARDING MOTHER): Continue supplemental oxygen with all sleep We [...] on EKG done before pulmonary rehab by farm management agent. Will refer to cardiology for clearance for [...] & Plan (06/06/2018 6:08 AM CDT): Patient's farm management agent is Dr. Borrero. Will continue with prednisone 40 daily. Pulmonary nodules 08/22/2017 Overview (08/24/2017): Added automatically from request for surgery [id number] Assessment & Plan (08/27/2024 12:39 PM BOARDING MOTHER): Hospitalization for pneumonia in February of 2024 [...] disease Assessment & Plan (08/27/2024 12:38 PM BOARDING MOTHER): Continue Breztri twice daily Albuterol as needed, [...] the first of the year here at [facility]. We have also discussed NIV and [...] future Assessment & Plan (08/31/2017 11:51 AM BOARDING MOTHER): Lung sounds are clear today. He is [...] - 02/04/2025 11:59 PM CDT Hospital Encounter [facility] [address] [place] [address] Mass of jaw Discharge Disposition: Discharge to home or self care 02/03/2025 Telephone [facility] [address] [place] [address] Marlee Julia Melonie. 01/28/2025 9:20 AM CDT [facility] [address] [facility] Building [address] [place] [address] Aimee, Suki Allie, DUPLICATING MACHINE MECHANIC Mass of jaw (Primary Dx); Former smoker 01/23/2025 Telephone [facility] Otolaryngology [address] [place] [address] Susy Wilkinson MS 11/25/2024 10:00 AM CDT Office Visit [facility] Medical Group Pulmonary at [address] [place] [address] Hernandez Oro MD Chronic obstructive pulmonary disease, unspecified COPD type (HCC) (Primary Dx); Pulmonary nodules; Bronchiectasis without acute exacerbation (HCC); Cigarette nicotine dependence in remission; Nocturnal hypoxemia from Last 3 Months Immunizations Immunization Administration [...] drink = 0.6 oz pur e alcohol) [facility] Utilities Answer Date Recorded In the past 12 months has [employer], gas, oil, or water [employer] threatened to shut off services in your [...] week 03/13/2024 How often do you attend [facility] or adventist services? Never 03/13/2024 Do you belong to any clubs o r organizations such as taoism groups, unions, fraternal or athletic groups, or [...] place to sleep or slept in a senior care (including now)? No 01/22/2024 PHQ-9 Answer Date [...] any time in the past 12 m [facility], were you homeless or living in a senior care (including now)? No 03/13/2024 Personal Safety Answer [...] on file Legal Sex Male 1:15 AM BOARDING MOTHER Gender Identity Not on file Sexual Orientation [...] CHEST ABDOMEN PELVIS ED 09/27/2019 5:52 AM BOARDING MOTHER HEPATITIS C ANTIBODY Routine Gen Lab 07/10/2017 [...] ORBITS: No gross acute finding. PARANASAL SINUSES: Uvqg-ht-[id number] bilateral maxillary sinus mucosal thickening. Moderate ethmoid [...] Tyshawn Siegel M.D. MZ: EMANUEL Report ID: [id number] Reading Location: [id number] Procedure Note Tyshawn Siegel MD - 02/04/2025 [...] ORBITS: No gross acute finding. PARANASAL SINUSES: Fsnk-mo-kloxnyvf bilateral maxillary sinus mucosal thickening. Moderate ethmoid [...] Tyshawn Siegel M.D. MZ: EMANUEL Report ID: [id number] Reading Location: [place] [address] us Suki Allie Aimee DUPLICATING MACHINE MECHANIC IMG CT PROCEDURES [place] l Result * CTA Chest Abdomen Pelvis (09/27/2019 5:52 AM BOARDING MOTHER) Anatomical Region Laterality Modality Body N/A Computed Tomogra phy 09/27/2019 5:25 AM BOARDING MOTHER Narrative 09/27/2019 6:22 AM BOARDING MOTHER PROCEDURE INFORMATION: Exam: CT Angiography Chest Without [...] BEEN ELECTRONICALLY SIGNED BY MENG FERRIS MD us Bruce Bassett MD IMG CT PROCEDURES Final Resu lt * Hepatitis C antibody (07/10/2017 6:03 PM CDT) Hep C Ab Nonreactive Nonreactive [facility] Comment: Interpretive Data Positive and greyzone results should be confirmed by a molecular method. If positive or greyzone, a second separately collected sample should be submitted for Hepatitis C Virus RNA. Detection and Quantitation by Real-Time Reverse Instrument Repair Specialist-PCR.Current Interpretive data was last revised on 2017. Blood specimen (specimen) 07/10/2017 6:03 PM CDT 07/10/2017 6:21 PM CDT Yeni Archuleta MD LAB MICROBIOLOG Y - GENERAL ORDERABLES Final Result Performing Organization Address City/State/[facility] Co de Phone Number [facility] One [facility] Department [place] [address] * COLONOSCOPY (12/21/2015) Colonoscopy Unknown Historical Provider HEALTH MAINTENANCE Final Result from Last 3 Months or Most Recently Relevant to Health Maintenance Insurance [facility] HMO/PPO Address: [facility] [address] [place] [address] [facility] HMO/PPO Address: [address] [address] [place] [address] [facility]F [facility] Address: [address] [address] [place] [address] [facility] MEDICARE ADVANTAGE [facility] Address: [address] [address] [place] [address] [facility] MEDICARE ADVANTAGE Advance Directives For more information, please contact: [phone] * Full Code (Latest Code Status on [...] More Spouse Health Care Agent Care Teams Marketing And Development Coordinator Relationship Specialty Start Date End Date Maxx Clark MD PCP - General 09/14/19 Hernandez Oro MD [address] [place] [address] [place] [address] Consulting Physician Pulmonary Disease 12/26/23
[2025-02-07] MEDS: ACETAMINOPHEN 500 MG TABLET 1000 MG PO (10:20)
[2025-02-07] MEDS: LACTATED RINGERS 1,000 ML 30 ML IV CONT ×3 (10:25→16:44)
[2025-02-07] MEDS: KETOROLAC 15 MG/ML VIAL (*BKC) IV PUSH (10:30)
--- NOTE | 2025-02-07 10:34 | WPDHPUPDATE1 ---
History and Physical Update Update Date/Time: 02/07/25 10:34 History and Physical has been reviewed, including an updated exam of the patient. There are NO changes in the patient's condition. Risks, benefits, and alternatives have been discussed and questions answered. Patient agrees to proceed with procedure.
[2025-02-07] MEDS: HYDROCORTISONE SODIUM SUCCINATE 100 MG/2 ML VIAL IV PUSH (10:59)
--- NOTE | 2025-02-07 13:18 | WPDANESEPPF ---
Anes - Initial Pre Proc Eval Procedure: Operation Date: 02/07/25 12:00 Proposed Procedures p Left Shoulder Arthroscopy, Biceps Tenodesis with Subacromial Decompression, Proceed as Indicated - Robb Moe MD Date/Time: 02/07/25 13:18 Surgeon: Robb Moe MD Pre Op Diagnosis: Lt Shoulder Biceps & Tendonitis Patient Data Age: 64 Gender: M Height: 1.78 m Weight: 72 kg Last Vital Signs Temp 36.3 C L 02/07/25 10:08 Pulse 58 L 02/07/25 10:08 Resp 18 02/07/25 10:08 BP 118/58 L 02/07/25 10:08 Pulse Ox 99 02/07/25 10:08 O2 Del Method Room Air 02/07/25 10:08 Allergies Allergy/AdvReac Type Severity Reaction Status Date / Time ciprofloxacin Allergy Severe Anaphylactic Verified 02/07/25 10:35 Shock Home Medications ?Medication ?Instructions ?Recorded ?Confirmed ?Type prednisone 10 mg tablet 5 mg PO DAILY 11/20/24 02/07/25 History albuterol sulfate 90 mcg/actuation 2 inh inhalation PRN SOB 01/23/25 01/23/25 History aerosol inhaler budesonide 160 mcg-glycopyr 9 2 inh inhalation BID 01/23/25 02/07/25 History mcg-formot 4.8 mcg/actuation HFA inhaler (Breztri Aerosphere) oxycodone-acetaminophen 5 mg-325 1 - 2 tablet PO Q4-6H PRN pain #30 02/07/25 Rx mg tablet tabs Patient hx anesthesia problems: none Family hx anesthesia problems: none Results Review: All pre-operative results and documents have been reviewed as part of the pre-operative evaluation. ON LICENSE OF [facility] Surgical History Surgical History History of surgery (~1981) Left clavicle Social History Social History Smoking status: Former smoker Tobacco type: cigarettes Do You Feel Safe in your Home?: Yes Lack of Transportation: No Lack of Food: Never True Current Housing: I Have Housing Concerned About Future Housing: No Difficulty Paying Gas/Electric Bills: No Difficulty Paying for Meds: No Currently Unemployed: No Education: High School Diploma/GED Difficulty w/ Childcare or Family Care: No Living arrangements: with family Spiritual care concerns: No Anes - Eval Final PreProcedure Day of Procedure 02/07/25 13:18 Patient weight: normal Heart: regular rate and rhythm Lungs: decreased breath sounds Airway: Mallampati scale class II Neurological: alert and oriented Last oral intake: >/= 8 hours ASA classification: III Emergent: no Anesthetic plan: proceed Anesthesia type and monitoring: general LMA and ETT and standard monitoring Results Review: All pre-operative results and documents have been reviewed as part of the pre-operative evaluation. Informed Consent: The patient's anesthetic plan and its attendant risks and benefits were discussed with the patient/family/POA. Questions were solicited and answers provided to the satisfaction of the patient/family/POA.
[2025-02-07] MEDS: BUPIVACAINE/EPINEPHRINE 0.5% 50 ML VIAL 30 ML INFILTRATE (13:24)
[2025-02-07] MEDS: ceFAZolin 2 GM/D5W 50 ML 2 GM/50 ML BAG IVPB (13:24)
[2025-02-07] MEDS: EPINEPHrine HCL INJ 1 MG/ML AMPUL 3 MG IRRIGATION (13:24)
[2025-02-07] MEDS: fentaNYL CITRATE INJ (*CRX) 100 MCG/2 ML VIAL 25 MCG IV PUSH ×8 (15:28→16:05)
--- NOTE | 2025-02-07 15:30 | W.PM.PROC2 ---
Procedure Note - Detailed Date of Procedure 02/07/25 Pre-op Diagnosis Left shoulder biceps tendinitis and partial-thickness rotator cuff tear Post-op Diagnosis Other (1. Partial-thickness rotator cuff tear 2. Subacromial impingement 3. Biceps tendinosis ) Procedure Performed Left shoulder 1. Arthroscopic rotator cuff repair 2. Arthroscopic subacromial decompression 3. Arthroscopic biceps tenodesis Surgeon Robb Moe MD Anesthesia General and Regional ( interscalene block) Findings Partial upper subscapularis split tearing with mild detachment at the superior footprint. Repair with cinch suture to a SwiveLock anchor. Loop and tack repair of the biceps tendon into the same anchor at the articular margin. The biceps was partially ruptured with severe tendinosis and inflammation. The articular cartilage was healthy. The articular supraspinatus rotator cuff showed mild 10% fraying. The bursal side showed 15% fraying at the supraspinatus. Significant bursitis. The anterolateral acromion was treated with acromioplasty using the arthroscopic bur. Rotator cuff was repaired with a rip large Regeneten collagen implant. Six KINJAL a soft tissue anchors were placed. Two peek bone anchors were placed laterally. Description of Procedure Preoperative antibiotics were given. An interscalene block was administered in the preoperative area. The patient was bought brought to the operating room. A general anesthetic was administered. The patient was carefully positioned in the beach chair position. The head and neck were carefully positioned. The non operative extremity was also carefully positioned. The shoulder was prepped and draped in the usual sterile fashion. Examination was performed. The shoulder showed a mild external rotation contracture. Standard posterior and anterior arthroscopic portals were established. Inflow achieved with the arthroscopic pump using saline and epinephrine. The glenohumeral joint was carefully inspected. The upper subscapularis was torn. The supraspinatus showed mild articular side low-grade tear. The biceps showed severe tendinosis with partial tearing. The loop and tack system was used to secure the biceps. It was released from the superior labrum. A cinch suture was placed in the upper subscapularis. The sutures were secured with a Bio[employer]posite SwiveLock anchor at the articular margin. Attention was turned to the subacromial space. A complete bursectomy was performed. The bursa was quite thickened. There was a low-grade 10-15% bursal side tear across the supraspinatus. Evidence of subacromial impingement. The acromioplasty was performed with the arthroscopic bur. The anterolateral bone was tapered to improve the subacromial space. Due to the damage on the articular and bursal side of the tendon and the MRI evidence of significant tendinosis and low-grade partial tearing, it was elected to repair the tendon with the Regeneten collagen implant. Six soft tissue KINJAL anchors were placed in the tendon and 2 peek bone anchors placed on the bone laterally. The arthroscopic instruments were removed. The wounds were closed with 3-0 Monocryl subcuticular suture and steri strips. There were no complications. A sling was applied and the patient brought to the recovery room. Implants [employer] Regeneten collagen implant. Six KINJAL soft tissue anchors. Two peek bone anchors. Arthrex 4.75 SwiveLock anchor. Estimated Blood Loss 20 Pathology None sent Complications No immediate complications Condition Stable Disposition PACU [facility] Billing Surgery - Charge Forward: Surgery Billing
[2025-02-07] MEDS: ONDANSETRON INJ 4 MG/2 ML VIAL IV PUSH (16:28)
[2025-02-07] MEDS: HYDROmorphone HCL INJ (*CRX) 2 MG/ML VIAL 0.5 MG IV PUSH (16:44)
--- NOTE | 2025-02-07 16:45 | SUR.PHASEII ---
DR HERNANDES CALLED RE: SEVERE PAIN; ORDERED DILAUDID.
[2025-02-07] MEDS: oxyCODONE HCL (*CRX) 5 MG TAB IR PO (17:23)
== END 2025-02-07 17:50 | disposition home or self-care (01) ==
PROVIDERS: PCP Internal Medicine; Visit Provider Orthopaedic Surgery
PROC: (CPT 29805; principal; 2025-02-07 12:00)
DX: S46.012A Strain of muscle(s) and tendon(s) of the rotator cuff of left shoulder, initial encounter (principal); M75.42 Impingement syndrome of left shoulder; M75.22 Bicipital tendinitis, left shoulder; X50.0XXA Overexertion from strenuous movement or load, initial encounter; Z87.891 Personal history of nicotine dependence
CPT/HCPCS: 29827; 29828; 29826; A4565; A9270; C1713; J0171; J0690; J1100; J1171; J1720; J1885; J2003; J2250; J2405; J2704; J3010; J7120